=== PATIENT | male | born 1950 | race American Indian/Alaskan Native ===

== ENCOUNTER 2017-11-12 11:28 | Inpatient (IN) | payer MEDICAID, MEDICARE ==
[2017-11-12 12:23] LABS: Basophils # (Auto) 0.1 K/mm3 (0.0-0.1); Basophils % (Auto) 1.1 % (0.0-1.8); Eosinophils # (Auto) 0.1 K/mm3 (0.0-0.4); Eosinophils % (Auto) 2.3 % (0.0-4.3); Hematocrit 34.7 % (35.5-45.6); Hemoglobin 11.3 gm/dl (11.8-15.2); Lymphocytes # (Auto) 1.9 K/mm3 (1.2-5.4); Lymphocytes % (Auto) 31.4 % (13.4-35.0); Mean Corpuscular HGB Conc 33 % (32-34); Mean Corpuscular Hemoglobin 30 pg (28-32); Mean Corpuscular Volume 91 fl (84-94); Monocytes # (Auto) 0.5 K/mm3 (0.0-0.8); Monocytes % (Auto) 9.2 % (0.0-7.3); Platelet Count 210 K/mm3 (140-440); Red Blood Count 3.82 M/mm3 (3.65-5.03)
[2017-11-12 12:30] LABS: Calcium 8.9 mg/dL (8.4-10.2)
[2017-11-12] MEDS ORDERED: NACL 0.9% 1000 ML 1,000 ML ONE (13:02)
[2017-11-12] MEDS ORDERED: NACL 0.9% 1000 ML 1,000 ML IV ONE ×2 (13:04→13:09)
--- NOTE | 2017-11-12 13:08 | Emergency Department Report ---
ED General Adult HPI - General Chief complaint: Hyperglycemia Stated complaint: HBP Time Seen by Provider: 11/12/17 13:05 Source: patient Mode of arrival: Ambulatory Limitations: No Limitations - History of Present Illness Initial comments: This is a 67-year-old type II diabetic on Humulin, Lantus and metformin. He ran out of his diabetes medicine. He went to the [facility]. His sugar read high and he was sent to the emergency department for evaluation. He has a history of chronic renal failure. He has a history of hypertension. He denies a history of congestive heart failure. Patient denies any pain, shortness of breath, nausea or vomiting. He's had no recent fever or chills. -: Gradual, days(s), week(s) Severity scale (0 -10): 0 Associated Symptoms: denies other symptoms, other (polyuria) - Related Data Home Medications Medication Instructions Recorded Confirmed Last Taken Metoprolol [Lopressor TAB] 50 mg PO BID 02/21/16 04/15/17 04/14/17 Previous Rx's Medication Instructions Recorded Last Taken Type Allopurinol [Zyloprim] 100 mg PO QDAY PRN #30 tablet 04/17/17 Unknown Rx AtorvaSTATin [Lipitor] 80 mg PO HS #30 tablet 04/17/17 Unknown Rx Benzonatate [Tessalon Perles] 100 mg PO Q8HR #10 capsule 04/17/17 Unknown Rx Insulin Regular, Human [HumuLIN R] 10 unit SQ TID #30 units 04/17/17 Unknown Rx Ticagrelor [Brilinta] 90 mg PO BID #60 tablet 04/17/17 Unknown Rx Valsartan [Diovan] 160 mg PO QDAY #30 tablet 04/17/17 Unknown Rx glipiZIDE [Glipizide] 5 mg PO DAILY #30 tablet 04/17/17 Unknown Rx Detemir (Nf) [Levemir (Nf)] 25 units SUB-Q BIDDIAB #120 units 04/19/17 Unknown Rx Allergies Allergy/AdvReac Type Severity Reaction Status Date / Time No Known Allergies Allergy Unverified 04/21/13 10:16 ED Review of Systems ROS: Stated complaint: HBP Other details as noted in HPI Constitutional: denies: chills, fever Eyes: denies: eye pain, eye discharge, vision change ENT: denies: ear pain, throat pain Respiratory: denies: cough, shortness of breath, wheezing Cardiovascular: denies: chest pain, palpitations Endocrine: no symptoms reported Gastrointestinal: denies: abdominal pain, nausea, diarrhea Genitourinary: denies: urgency, dysuria Musculoskeletal: denies: back pain, joint swelling, arthralgia Skin: denies: rash, lesions Neurological: denies: headache, weakness, paresthesias Psychiatric: denies: anxiety, depression Hematological/Lymphatic: denies: easy bleeding, easy bruising ED Past Medical Hx - Past Medical History Hx Hypertension: Yes Hx Heart Attack/AMI: Yes (cardiac stent placed 2014) Hx Diabetes: Yes Hx Renal Disease: Yes (Renal insufficiency. No hemodialysis) Hx Seizures: No Hx Kidney Stones: No Hx Asthma: No Hx COPD: No Hx Tuberculosis: No Hx Dementia: No Hx HIV: No Additional medical history: Pancreatitis - Surgical History Hx Coronary Stent: No Hx Open Heart Surgery: No Hx Pacemaker: No Hx Internal Defibrillator: No Hx Cholecystectomy: No Hx Appendectomy: No Hx Breast Surgery: No Additional Surgical History: right arm surgery. hernia repair. brain aneurysm with repair - Social History Smoking Status: Former Smoker Substance Use Type: None - Medications Home Medications: Home Medications Medication Instructions Recorded Confirmed Last Taken Type Metoprolol [Lopressor TAB] 50 mg PO BID 02/21/16 04/15/17 04/14/17 History Allopurinol [Zyloprim] 100 mg PO QDAY PRN #30 tablet 04/17/17 Unknown Rx AtorvaSTATin [Lipitor] 80 mg PO HS #30 tablet 04/17/17 Unknown Rx Benzonatate [Tessalon Perles] 100 mg PO Q8HR #10 capsule 04/17/17 Unknown Rx Insulin Regular, Human [HumuLIN R] 10 unit SQ TID #30 units 04/17/17 Unknown Rx Ticagrelor [Brilinta] 90 mg PO BID #60 tablet 04/17/17 Unknown Rx Valsartan [Diovan] 160 mg PO QDAY #30 tablet 04/17/17 Unknown Rx glipiZIDE [Glipizide] 5 mg PO DAILY #30 tablet 04/17/17 Unknown Rx Detemir (Nf) [Levemir (Nf)] 25 units SUB-Q BIDDIAB #120 units 04/19/17 Unknown Rx ED Physical Exam - General Limitations: Physical Limitation General appearance: alert, in no apparent distress, obese - Head Head exam: Present: atraumatic, normocephalic - Eye Eye exam: Present: normal appearance. Absent: scleral icterus - ENT ENT exam: Present: mucous membranes moist - Neck Neck exam: Present: normal inspection. Absent: tenderness, meningismus - Respiratory Respiratory exam: Present: normal lung sounds bilaterally. Absent: respiratory distress - Cardiovascular Cardiovascular Exam: Present: regular rate, normal rhythm. Absent: systolic murmur, diastolic murmur, rubs, gallop - GI/Abdominal GI/Abdominal exam: Present: soft, distended (morbidly obese), normal bowel sounds. Absent: tenderness, guarding, rebound, rigid - Rectal Rectal exam: Present: deferred - Extremities Exam Extremities exam: Present: normal inspection - Back Exam Back exam: Present: normal inspection - Neurological Exam Neurological exam: Present: alert, oriented X3 - Psychiatric Psychiatric exam: Present: normal affect, normal mood - Skin Skin exam: Present: warm, dry, intact, normal color. Absent: rash ED Course Vital Signs 11/12/17 11/12/17 11/12/17 11:48 12:21 12:24 Temperature 97.6 F 97.7 F Pulse Rate 117 H 96 H Respiratory 18 16 Rate Blood Pressure 115/91 Blood Pressure 147/95 [Right] O2 Sat by Pulse 96 99 99 Oximetry 11/12/17 11/12/17 11/12/17 12:30 12:46 13:00 Temperature Pulse Rate 96 H 96 H 95 H Respiratory 9 L 17 17 Rate Blood Pressure 147/95 147/95 146/104 Blood Pressure [Right] O2 Sat by Pulse 100 99 98 Oximetry - Reevaluation(s) Reevaluation #1: Patient was given IV fluids. He was given IV insulin. He did not have ketones in his urine. He has a mildly increased anion gallop. I think this is more likely related to his prerenal azotemia and chronic renal insufficiency. I do not think he meets criteria for an insulin drip. He is admitted to the hospitalist service for further care and evaluation. 11/12/17 14:25 ED Medical Decision Making - Lab Data Result diagrams: 11/12/17 11:58 11/12/17 11:58 Laboratory Results - last 24 hr 11/12/17 11/12/17 11/12/17 11:46 11:58 11:58 WBC 6.0 RBC 3.82 Hgb 11.3 L Hct 34.7 L MCV 91 MCH 30 MCHC 33 RDW 15.0 Plt Count 210 Lymph % (Auto) 31.4 Starr % (Auto) 9.2 H Eos % (Auto) 2.3 Baso % (Auto) 1.1 Lymph # 1.9 Starr # 0.5 Eos # 0.1 Baso # 0.1 Seg Neutrophils % 56.0 Seg Neutrophils # 3.4 VBG pH Sodium 134 L Potassium 5.0 Chloride 98.0 Carbon Dioxide 21 L Anion Gap 20 BUN 54 H Creatinine 3.0 H Estimated GFR 25 BUN/Creatinine Ratio 18 Glucose 604 H* POC Glucose 469 H Calcium 8.9 11/12/17 11:58 WBC RBC Hgb Hct MCV MCH MCHC RDW Plt Count Lymph % (Auto) Starr % (Auto) Eos % (Auto) Baso % (Auto) Lymph # Starr # Eos # Baso # Seg Neutrophils % Seg Neutrophils # VBG pH 7.266 L Sodium Potassium Chloride Carbon Dioxide Anion Gap BUN Creatinine Estimated GFR BUN/Creatinine Ratio Glucose POC Glucose Calcium Critical care attestation.: If time is entered above; I have spent that time in minutes in the direct care of this critically ill patient, excluding procedure time. ED Disposition Clinical Impression: Prerenal azotemia, Uncontrolled hypertension Hyperglycemia due to type 2 diabetes mellitus Qualifiers: Diabetes mellitus [employer] insulin use: with mcfp use Qualified Code(s): E11.65 - Type 2 diabetes mellitus with hyperglycemia; Z79.4 - half-way (current ) use of insulin Acute on chronic renal failure Qualifiers: Acute renal failure type: unspecified Chronic kidney disease stage: stage 3 ( moderate) Qualified Code(s): N17.9 - Acute kidney failure, unspecified; N18.3 - Chronic kidney disease, stage 3 (moderate) Disposition: -09 OP ADMIT IP TO THIS HOSP Is pt being admited?: Yes Does the pt Need Aspirin: Yes Condition: Stable Instructions: Diabetes Mellitus Type 2 in Adults (ED), Hypertension (ED) Referrals: PRIMARY CARE, [Primary Care Provider] - 3-5 Days Time of Disposition: 14:28
[2017-11-12] MEDS ORDERED: HumuLIN R IV ONE ×2 (13:10→16:02)
--- NOTE | 2017-11-12 14:22 | XRay Report ---
FINAL REPORT EXAM: XR CHEST 1V AP HISTORY: hypertension TECHNIQUE: Frontal chest x-ray. PRIORS: None currently available. FINDINGS: [id number] cardiomegaly. Aortic calcifications. There is no effusion. There is no pneumothorax. There is no consolidation. Punctate densities in the left mid lower lung suggests calcified granulomas. There are no suspicious osseous lesions. IMPRESSION: Suspect calcified granulomas in the left lung. Interval six-month follow-up x-ray to document stability is recommended. Cardiomegaly. Otherwise, no acute pulmonary findings.
[2017-11-12] MEDS ORDERED: BABY ASPIRIN PO ONE (14:28)
[2017-11-12] MEDS ORDERED: DIOVAN PO ONE (14:37)
[2017-11-12] MEDS ORDERED: LOPRESSOR PO ONE (14:37)
[2017-11-12 14:44] LABS: Bilirubin,Urine NEG (Negative); Blood,Urine SM (Negative); Color,Urine Straw (Yellow); Urobilinogen,Urine < 2.0 mg/dL (<2.0)
[2017-11-12] MEDS ORDERED: HumuLIN R ONE (16:10)
--- NOTE | 2017-11-12 18:08 | History and Physical Report ---
History of Present Illness Date of examination: 11/12/17 Date of admission: 11/12/17 14:29 Chief complaint: CC: Comes in for High Blood sugars---sent from [facility] History of present illness: History of Present Illness: 67 y/o Black male came in for high blood sugars.Pateint went to [facility] and was told that his BG was higher than 500.patient also feels weak and easily fatigued.Some SOB.No chest pain.No fever or chills.Patient is on lantus and did not take it for last 2 days.Polyuria is present.Patient also has ckd for last 5 to 6 years.Also has CHF. Past Medical History Hx Hypertension: Yes Hx Heart Attack/AMI: Yes (cardiac stent placed 2014) Hx Diabetes: Yes Hx Renal Disease: Yes (Renal insufficiency. No hemodialysis) Additional medical history: Pancreatitis Surgical History Additional Surgical History: right arm surgery. hernia repair. brain aneurysm with repair Social History Smoking Status: Former Smoker Substance Use Type: None Family History Htn Medications Home Medications: Home Medications Medication Instructions Recorded Confirmed Last Taken Type Metoprolol [Lopressor TAB] 50 mg PO BID 02/21/16 04/15/17 04/14/17 History Allopurinol [Zyloprim] 100 mg PO QDAY PRN #30 tablet 04/17/17 Unknown Rx AtorvaSTATin [Lipitor] 80 mg PO HS #30 tablet 04/17/17 Unknown Rx Benzonatate [Tessalon Perles] 100 mg PO Q8HR #10 capsule 04/17/17 Unknown Rx Insulin Regular, Human [HumuLIN R] 10 unit SQ TID #30 units 04/17/17 Unknown Rx Ticagrelor [Brilinta] 90 mg PO BID #60 tablet 04/17/17 Unknown Rx Valsartan [Diovan] 160 mg PO QDAY #30 tablet 04/17/17 Unknown Rx glipiZIDE [Glipizide] 5 mg PO DAILY #30 tablet 04/17/17 Unknown Rx Detemir (Nf) [Levemir (Nf)] 25 units SUB-Q BIDDIAB #120 units 04/19/17 Unknown Rx Review of Systems ROS: Stated complaint: HBP Other details as noted in HPI Constitutional: denies: chills, fever Eyes: denies: eye pain, eye discharge, vision change ENT: denies: ear pain, throat pain Respiratory: denies: cough, shortness of breath, wheezing Cardiovascular: denies: chest pain, palpitations Endocrine: no symptoms reported Gastrointestinal: denies: abdominal pain, nausea, diarrhea Genitourinary: denies: urgency, dysuria Musculoskeletal: denies: back pain, joint swelling, arthralgia Skin: denies: rash, lesions Neurological: denies: headache, weakness, paresthesias Psychiatric: denies: anxiety, depression Hematological/Lymphatic: denies: easy bleeding, easy bruising Medications and Allergies Allergies Allergy/AdvReac Type Severity Reaction Status Date / Time No Known Allergies Allergy Unverified 04/21/13 10:16 Home Medications Medication Instructions Recorded Confirmed Last Taken Type Metoprolol [Lopressor TAB] 50 mg PO BID 02/21/16 04/15/17 04/14/17 History Allopurinol [Zyloprim] 100 mg PO QDAY PRN #30 tablet 04/17/17 Unknown Rx AtorvaSTATin [Lipitor] 80 mg PO HS #30 tablet 04/17/17 Unknown Rx Benzonatate [Tessalon Perles] 100 mg PO Q8HR #10 capsule 04/17/17 Unknown Rx Insulin Regular, Human [HumuLIN R] 10 unit SQ TID #30 units 04/17/17 Unknown Rx Ticagrelor [Brilinta] 90 mg PO BID #60 tablet 04/17/17 Unknown Rx Valsartan [Diovan] 160 mg PO QDAY #30 tablet 04/17/17 Unknown Rx glipiZIDE [Glipizide] 5 mg PO DAILY #30 tablet 04/17/17 Unknown Rx Detemir (Nf) [Levemir (Nf)] 25 units SUB-Q BIDDIAB #120 units 04/19/17 Unknown Rx Exam - Constitutional Vitals: Temp Pulse Resp BP Pulse Ox 98.0 F 91 H 20 169/103 96 11/12/17 16:38 11/12/17 16:38 11/12/17 16:38 11/12/17 16:38 11/12/17 16:38 General appearance: Present: no acute distress, well-nourished - EENT Eyes: Present: PERRL ENT: hearing intact, clear oral mucosa - Neck Neck: Present: supple, normal ROM - Respiratory Respiratory effort: normal Respiratory: bilateral: CTA - Cardiovascular Heart rate: 78 Rhythm: regular Heart Sounds: Present: S1 & S2. Absent: rub, click - Extremities Extremities: no ischemia, pulses intact, pulses symmetrical, No edema Peripheral Pulses: within normal limits - Abdominal General gastrointestinal: Present: soft, non-tender, non-distended, normal bowel sounds Male genitourinary: Present: normal - Rectal Rectal Exam: deferred - Integumentary Integumentary: Present: clear, warm, dry - Musculoskeletal Musculoskeletal: gait normal, strength equal bilaterally - Psychiatric Psychiatric: appropriate mood/affect, intact judgment & insight - Neurologic Neurologic: CNII-XII intact, moves all extremities - Allied Health Allied health notes reviewed: nursing, case management Results - Labs CBC & Chem 7: 11/12/17 11:58 11/12/17 11:58 Labs: Laboratory Last Values WBC 6.0 K/mm3 (4.5-11.0) 11/12/17 11:58 RBC 3.82 M/mm3 (3.65-5.03) 11/12/17 11:58 Hgb 11.3 gm/dl (11.8-15.2) L 11/12/17 11:58 Hct 34.7 % (35.5-45.6) L 11/12/17 11:58 MCV 91 fl (84-94) 11/12/17 11:58 MCH 30 pg (28-32) 11/12/17 11:58 MCHC 33 % (32-34) 11/12/17 11:58 RDW 15.0 % (13.2-15.2) 11/12/17 11:58 Plt Count 210 K/mm3 (140-440) 11/12/17 11:58 Lymph % (Auto) 31.4 % (13.4-35.0) 11/12/17 11:58 [place] % (Auto) 9.2 % (0.0-7.3) H 11/12/17 11:58 Eos % (Auto) 2.3 % (0.0-4.3) 11/12/17 11:58 Baso % (Auto) 1.1 % (0.0-1.8) 11/12/17 11:58 Lymph # 1.9 K/mm3 (1.2-5.4) 11/12/17 11:58 [place] # 0.5 K/mm3 (0.0-0.8) 11/12/17 11:58 Eos # 0.1 K/mm3 (0.0-0.4) 11/12/17 11:58 Baso # 0.1 K/mm3 (0.0-0.1) 11/12/17 11:58 Seg Neutrophils % 56.0 % (40.0-70.0) 11/12/17 11:58 Seg Neutrophils # 3.4 K/mm3 (1.8-7.7) 11/12/17 11:58 VBG pH 7.266 (7.320-7.420) L 11/12/17 11:58 Sodium 134 mmol/L (137-145) L 11/12/17 11:58 Potassium 5.0 mmol/L (3.6-5.0) 11/12/17 11:58 Chloride 98.0 mmol/L (98-107) 11/12/17 11:58 Carbon Dioxide 21 mmol/L (22-30) L 11/12/17 11:58 Anion Gap 20 mmol/L 11/12/17 11:58 BUN 54 mg/dL (9-20) H 11/12/17 11:58 Creatinine 3.0 mg/dL (0.8-1.5) H 11/12/17 11:58 Estimated GFR 25 ml/min 11/12/17 11:58 BUN/Creatinine Ratio 18 % 11/12/17 11:58 Glucose 604 mg/dL (75-100) H* 11/12/17 11:58 POC Glucose 423 (70-105) H 11/12/17 16:50 Calcium 8.9 mg/dL (8.4-10.2) 11/12/17 11:58 Urine Color Straw (Yellow) 11/12/17 14:33 Urine Turbidity Clear (Clear) 11/12/17 14:33 Urine pH 5.0 (5.0-7.0) 11/12/17 14:33 Ur Specific [place] 1.015 (1.003-1.030) 11/12/17 14:33 Urine Protein 100 mg/dl mg/dL (Negative) 11/12/17 14:33 Urine Glucose (UA) >=500 mg/dL (Negative) 11/12/17 14:33 Urine Ketones Neg mg/dL (Negative) 11/12/17 14:33 Urine Blood Sm (Negative) 11/12/17 14:33 Urine Nitrite Neg (Negative) 11/12/17 14:33 Urine Bilirubin Neg (Negative) 11/12/17 14:33 Urine Urobilinogen < 2.0 mg/dL (<2.0) 11/12/17 14:33 Ur Leukocyte Esterase Neg (Negative) 11/12/17 14:33 Urine WBC (Auto) 1.0 /HPF (0.0-6.0) 11/12/17 14:33 Urine RBC (Auto) 3.0 /HPF (0.0-6.0) 11/12/17 14:33 Short CBC 11/12/17 Range/Units 11:58 WBC 6.0 (4.5-11.0) K/mm3 Hgb 11.3 L (11.8-15.2) gm/dl Hct 34.7 L (35.5-45.6) % Plt Count 210 (140-440) K/mm3 BMP 11/12/17 11:58 Sodium 134 L Potassium 5.0 Chloride 98.0 Carbon Dioxide 21 L BUN 54 H Creatinine 3.0 H Glucose 604 H* Calcium 8.9 Urine 11/12/17 Range/Units 14:33 Urine Color Straw (Yellow) Urine pH 5.0 (5.0-7.0) Ur Specific [place] 1.015 (1.003-1.030) Urine Protein 100 mg/dl (Negative) mg/dL Urine Glucose (UA) >=500 (Negative) mg/dL - Imaging and Cardiology EKG: report reviewed (Left anterior fascicular block 87/minute NSR LAFB ST depression) Imaging and Cardiology: CXR IMPRESSION: Suspect calcified granulomas in the left lung. Interval six-month follow-up x-ray to document stability is recommended. Cardiomegaly. Otherwise, no acute pulmonary findings. Assessment and Plan Advance Directives: Yes (full code) VTE prophylaxis?: Chemical Plan of care discussed with patient/family: Yes - Patient Problems (1) Hyperosmolar non-ketotic state in patient with type 2 diabetes mellitus Current Visit: Yes Status: Acute Plan to address problem: Insulin adjusted and was put on high-dose sliding scale coverage. Lantus increased to 35 units. Glipizide stopped because there is no need for oral hypoglycemics in the presence of long-acting insulin. Check hemoglobin A1c IV fluids at a very low volume of 42 mL per hour because of the chronic kidney disease and heart failure. Patient to be counseled about his dosage at the time of discharge (2) Acute kidney injury Current Visit: No Status: Acute Plan to address problem: IV fluids at low-dose for now (3) Chronic kidney disease Current Visit: Yes Status: Chronic Qualifiers: Chronic kidney disease stage: stage 4 (severe) Qualified Code(s): N18.4 - Chronic kidney disease, stage 4 (severe) Plan to address problem: nephrology consulted Baseline Bun/cr 30/1.8 in 2013 (4) Gout Current Visit: Yes Status: Chronic Qualifiers: Gout site: unspecified site Plan to address problem: Continue allopurinol (5) Hyperlipidemia Current Visit: Yes Status: Chronic Qualifiers: Hyperlipidemia type: mixed hyperlipidemia Qualified Code(s): E78.2 - Mixed hyperlipidemia Plan to address problem: Continue statins (6) Hypertension Current Visit: Yes Status: Chronic Qualifiers: Hypertension type: essential hypertension Qualified Code(s): I10 - Essential (primary) hypertension Plan to address problem: Continue valsartan (7) Coronary artery disease Current Visit: Yes Status: Chronic Qualifiers: Coronary Disease-Associated Artery/Lesion type: [place] artery [place] vs. transplanted heart: [place] heart Plan to address problem: Continue BRILINTA (8) DVT prophylaxis Current Visit: Yes Status: Acute Plan to address problem: heparin 5000 every 12 subcutaneously Famotidine initiated for GI prophylaxis
[2017-11-12] MEDS ORDERED: ZYLOPRIM PO PRN (18:57)
[2017-11-12] MEDS ORDERED: SODIUM CHLORIDE FLUSH SYRINGE 10 ML IV PRN (18:59)
[2017-11-12] MEDS ORDERED: MORPHINE IV PRN (18:59)
[2017-11-12] MEDS ORDERED: ZOFRAN IV PRN (18:59)
[2017-11-12] MEDS ORDERED: TYLENOL PO PRN (18:59)
[2017-11-12] MEDS: PEPCID PO SCH (21:11)
[2017-11-12] MEDS: DIOVAN PO SCH (21:11)
[2017-11-12] MEDS: TESSALON PERLES PO SCH (21:11)
[2017-11-12] MEDS: BRILINTA PO SCH (21:12)
[2017-11-12] MEDS: LOPRESSOR PO SCH (21:12)
[2017-11-12] MEDS: SODIUM CHLORIDE FLUSH SYRINGE 10 ML IV SCH (21:12)
[2017-11-12] MEDS: NACL 0.9% 1000 ML 1,000 ML IV SCH (21:12)
[2017-11-12] MEDS: PERCOCET 5/325 PO PRN (21:14)
[2017-11-12] MEDS: HumaLOG SUB-Q SCH (22:19)
[2017-11-13] MEDS: TESSALON PERLES PO SCH ×3 (05:10→21:49)
[2017-11-13 05:51] LABS: Basophils % (Auto) 0.7 % (0.0-1.8); Eosinophils # (Auto) 0.2 K/mm3 (0.0-0.4); Eosinophils % (Auto) 3.3 % (0.0-4.3); Hematocrit 33.2 % (35.5-45.6); Hemoglobin 10.9 gm/dl (11.8-15.2); Lymphocytes # (Auto) 1.8 K/mm3 (1.2-5.4); Lymphocytes % (Auto) 33.9 % (13.4-35.0); Mean Corpuscular HGB Conc 33 % (32-34); Mean Corpuscular Hemoglobin 30 pg (28-32); Mean Corpuscular Volume 90 fl (84-94); Monocytes # (Auto) 0.5 K/mm3 (0.0-0.8); Monocytes % (Auto) 9.4 % (0.0-7.3); Platelet Count 195 K/mm3 (140-440); Red Blood Count 3.69 M/mm3 (3.65-5.03); Red Cell Distribution Width 14.7 % (13.2-15.2)
[2017-11-13 06:17] LABS: Calcium 8.6 mg/dL (8.4-10.2)
[2017-11-13] MEDS: HumuLIN R SUB-Q SCH ×3 (08:00→16:42)
[2017-11-13] MEDS ORDERED: INSULIN DETEMIR 35 UNIT SUB-Q SCH (08:00)
--- NOTE | 2017-11-13 08:04 | Progress Note ---
Assessment and Plan - Hyperosmolar non-ketotic state in patient with type 2 diabetes mellitus hemoglobin A1c 17.0% Bld sugar inproving Continue IV fluids at a very low volume of 42 mL per hour because of the chronic kidney disease and heart failure. counseled about his dosage at the time of discharge - Acute kidney injury Current Visit: No Status: Acute Plan to address problem: IV fluids at low-dose for now - Chronic kidney disease nephrology consulted Baseline Bun/cr 30/1.8 in 2013 - Gout Continue allopurinol Hold NSIAD of colchicine b/c CKD - Hyperlipidemia Continue statins - Hypertension D/c valsartan - recalled meds Commence Losartan - Coronary artery disease Continue BRILINTA - DVT prophylaxis with Heparin and GI with Pepcid Subjective Date of service: 11/13/17 Principal diagnosis: HHNK state, CKD 3b, Interval history: Patient seen and examined. [facility] for polyuria polydipsia polyphagia that is getting better. Objective - Exam Narrative Exam: Constitutional: Well-nourished well-developed. In no distress Head: Normocephalic atraumatic Eyes: Pupils are equal round and reactive to light Nose: No enlarged turbinates, no septal deviation. Mouth: Moist mucous membranes. Neck: Supple no thyromegaly. No bruit. No JVD Heart: Regular rate and rhythm, S1-S2 abnormal. No rubs murmurs or gallop Lungs: Clear to auscultation bilaterally no rales or rhonchi Abdomen: Soft, nontender. Bowel sound are present. Extremities: No edema no cyanosis and no clubbing. Neuro: Alert oriented Oriented x3. No focal sensory or motor deficit. Skin: No rashes no hyperemic spots Psychiatry: Euthymic. Calm. - Constitutional Vitals: Vital Signs - 12hr 11/12/17 11/12/17 11/12/17 21:11 21:12 22:00 Temperature Pulse Rate 74 74 74 Respiratory Rate Blood Pressure 183/106 183/106 Blood Pressure [Right] O2 Sat by Pulse Oximetry 11/13/17 02:00 Temperature 97.1 F L Pulse Rate 74 Respiratory 20 Rate Blood Pressure Blood Pressure 168/94 [Right] O2 Sat by Pulse 95 Oximetry - Labs CBC & Chem 7: 11/13/17 05:21 11/13/17 05:21 Labs: Abnormal lab results 08/11/12/17 11/12/17 Range/Units 11:46 11:58 11:58 Hgb 11.3 L (11.8-15.2) gm/dl Hct 34.7 L (35.5-45.6) % [place] % (Auto) 9.2 H (0.0-7.3) % VBG pH (7.320-7.420) Sodium 134 L (137-145) mmol/L Carbon Dioxide 21 L (22-30) mmol/L BUN 54 H (9-20) mg/dL Creatinine 3.0 H (0.8-1.5) mg/dL Glucose 604 H* (75-100) mg/dL POC Glucose 469 H (70-105) Hemoglobin A1c (4-6) % Albumin (3.9-5) g/dL 11/12/17 11/12/17 11/12/17 Range/Units 11:58 15:59 16:50 Hgb (11.8-15.2) gm/dl Hct (35.5-45.6) % [place]ila % (Auto) (0.0-7.3) % VBG pH 7.266 L (7.320-7.420) Sodium (137-145) mmol/L Carbon Dioxide (22-30) mmol/L BUN (9-20) mg/dL Creatinine (0.8-1.5) mg/dL Glucose (75-100) mg/dL POC Glucose 492 H 423 H (70-105) Hemoglobin A1c (4-6) % Albumin (3.9-5) g/dL 11/12/17 11/12/17 11/13/17 Range/Units 20:36 22:07 05:21 Hgb 10.9 L (11.8-15.2) gm/dl Hct 33.2 L (35.5-45.6) % [place]ila % (Auto) 9.4 H (0.0-7.3) % VBG pH (7.320-7.420) Sodium (137-145) mmol/L Carbon Dioxide (22-30) mmol/L BUN (9-20) mg/dL Creatinine (0.8-1.5) mg/dL Glucose (75-100) mg/dL POC Glucose 418 H (70-105) Hemoglobin A1c 17.0 H (4-6) % Albumin (3.9-5) g/dL 11/13/17 Range/Units 05:21 Hgb (11.8-15.2) gm/dl Hct (35.5-45.6) % [place] % (Auto) (0.0-7.3) % VBG pH (7.320-7.420) Sodium (137-145) mmol/L Carbon Dioxide 21 L (22-30) mmol/L BUN 45 H (9-20) mg/dL Creatinine 2.6 H (0.8-1.5) mg/dL Glucose 256 H (75-100) mg/dL POC Glucose (70-105) Hemoglobin A1c (4-6) % Albumin 3.0 L (3.9-5) g/dL
[2017-11-13] MEDS: HumaLOG SUB-Q SCH ×4 (08:19→22:55)
[2017-11-13] MEDS: LANTUS SUB-Q SCH ×2 (08:19→16:41)
[2017-11-13] MEDS: PEPCID PO SCH ×2 (09:38→21:49)
[2017-11-13] MEDS: LOPRESSOR PO SCH ×2 (09:39→21:49)
[2017-11-13] MEDS: DIOVAN PO SCH (09:39)
[2017-11-13] MEDS: BRILINTA PO SCH ×2 (09:39→21:49)
--- NOTE | 2017-11-13 10:53 | Consultation ---
History of Present Illness - Reason for Consult Consult date: 11/13/17 acute renal failure, chronic renal failure - History of Present Illness The patient is a 66-year-old male with history significant for long standing DM- 2, Obesity, HTN, Ex-smoker quit 2013, CKD stage 3 approaching stage 4, CAD s/p drug eluding stent 04/23/2013 on Bilanta, Gout, Dyslipidemia andmedical non- compliance who presented to emergency department with uncontrolled blood sugar. His blood sugar was 604 and creatinine 3. He ran out of his Insulin few days ago. Patient had similar presentation in the past. HbA1C 17. Past History Past Medical History: diabetes, heart failure (?), hypertension, hyperlipidemia , renal failure Medications and Allergies Allergies Allergy/AdvReac Type Severity Reaction Status Date / Time No Known Allergies Allergy Unverified 04/21/13 10:16 Home Medications Medication Instructions Recorded Confirmed Last Taken Type Metoprolol [Lopressor TAB] 50 mg PO BID 02/21/16 04/15/17 04/14/17 History Allopurinol [Zyloprim] 100 mg PO QDAY PRN #30 tablet 04/17/17 Unknown Rx AtorvaSTATin [Lipitor] 80 mg PO HS #30 tablet 04/17/17 Unknown Rx Benzonatate [Tessalon Perles] 100 mg PO Q8HR #10 capsule 04/17/17 Unknown Rx Insulin Regular, Human [HumuLIN R] 10 unit SQ TID #30 units 04/17/17 Unknown Rx Ticagrelor [Brilinta] 90 mg PO BID #60 tablet 04/17/17 Unknown Rx Valsartan [Diovan] 160 mg PO QDAY #30 tablet 04/17/17 Unknown Rx glipiZIDE [Glipizide] 5 mg PO DAILY #30 tablet 04/17/17 Unknown Rx Detemir (Nf) [Levemir (Nf)] 25 units SUB-Q BIDDIAB #120 units 04/19/17 Unknown Rx Active Meds: Active Medications Acetaminophen (Tylenol) 650 mg PO Q4H PRN PRN Reason: Pain MILD(1-3)/Fever >100.5/ALCARAZ Allopurinol (Zyloprim) 100 mg PO QDAY PRN PRN Reason: Inflammation Atorvastatin Calcium (Lipitor) 80 mg PO HS ISAC Last Admin: 11/12/17 21:11 Dose: 80 mg Benzonatate (Tessalon Perles) 100 mg PO Q8HR [facility] Last Admin: 11/13/17 05:10 Dose: 100 mg Famotidine (Pepcid) 20 mg PO BID [facility] Last Admin: 11/13/17 09:38 Dose: 20 mg Sodium Chloride (Nacl 0.9% 1000 Ml) 1,000 mls @ 42 mls/hr IV DIRECT [facility] Last Admin: 11/12/17 21:12 Dose: 42 mls/hr Insulin Glargine (Lantus) 35 units SUB-Q BIDDIAB [facility] Last Admin: 11/13/17 08:19 Dose: 35 units Insulin Human Lispro (Humalog) 0 unit SUB-Q ACHS [facility]; Protocol Last Admin: 11/13/17 08:19 Dose: 6 unit Insulin Human Regular (Humulin R) 10 units SUB-Q AC [facility] Metoprolol Tartrate (Lopressor) 50 mg PO BID [facility] Last Admin: 11/13/17 09:39 Dose: 50 mg Morphine Sulfate (Morphine) 2 mg IV Q4H PRN PRN Reason: Pain, Moderate (4-6) Ondansetron HCl (Zofran) 4 mg IV Q8H PRN PRN Reason: Nausea And Vomiting Oxycodone/Acetaminophen (Percocet 5/325) 1 tab PO Q6H PRN PRN Reason: Pain, Moderate (4-6) Last Admin: 11/12/17 21:14 Dose: 1 tab Sodium Chloride (Sodium Chloride Flush Syringe 10 Ml) 10 ml IV BID [facility] Last Admin: 11/12/17 21:12 Dose: 10 ml Sodium Chloride (Sodium Chloride Flush Syringe 10 Ml) 10 ml IV PRN PRN PRN Reason: LINE FLUSH Ticagrelor (Brilinta) 90 mg PO BID [facility] Last Admin: 11/13/17 09:39 Dose: 90 mg Valsartan (Diovan) 160 mg PO QDAY [facility] Last Admin: 11/13/17 09:39 Dose: 160 mg Review of Systems Constitutional: no weight loss, no weight gain, no fever, no chills, no anorexia Cardiovascular: high blood pressure, no chest pain, no orthopnea, no palpitations, no edema, no syncope, no lightheadedness, no shortness of breath, no leg edema Respiratory: no cough, no hemoptysis, no shortness of breath Gastrointestinal: no abdominal pain, no nausea, no vomiting, no diarrhea, no melena Genitourinary Male: no dysuria, no hematuria, no kidney stones Rectal: no bleeding Musculoskeletal: no muscle weakness Integumentary: no rash, no sores, no wounds, no jaundice Neurological: no paralysis, no weakness, no seizures, no syncope, no headaches, no aphasia, no change in speech, no change in mentation, no confusion, no memory loss, no double vision, no loss of vision Psychiatric: no confusion Endocrine: polyuria Exam - Vital Signs Vital signs: Vital Signs Temp Pulse Resp BP Pulse Ox 97.6 F 117 H 18 115/91 96 11/12/17 11:48 11/12/17 11:48 11/12/17 11:48 11/12/17 11:48 11/12/17 11:48 - General Appearance General appearance: well-developed, well-nourished, appears stated age, obese, other (not in distress) EENT: ATNC, PERRL, hearing intact, vision intact Neck: Present: neck supple, trachea midline Respiratory: Clear to Ascultation Heart: regular, S1S2, no murmurs Gastrointestinal: Present: normoactive bowel sounds. Absent: tenderness Integumentary: no rash, warm and dry Neurologic: no focal deficit, no asterixis, alert and oriented x3 Musculoskeletal: Present: other (no edema) Results - Lab Results 11/13/17 05:21 11/13/17 05:21 Most recent lab results Calcium 8.6 mg/dL (8.4-10.2) 11/13/17 05:21 Assessment and Plan 1. Acute kidney injury: MADIHA superimposed on CKD stage 3 in the setting of uncontrolled DM. Creatinine level is better today. Monitor. 2. Electrolytes: Metabolic acidosis. 3. Uncontrolled DM: Blood sugar is better now. 4. CAD. 5. Medical non-compliance: Compliance encouraged.
[2017-11-13] MEDS: SODIUM CHLORIDE FLUSH SYRINGE 10 ML IV SCH ×2 (12:11→21:50)
--- NOTE | 2017-11-13 12:59 | Progress Note ---
Subjective Date of service: 11/13/17 Principal diagnosis: HHNK state, CKD 3b, Interval history: CONSULT DICTATED Objective Vital Signs Temp Pulse Resp BP BP Pulse Ox 11/13/17 10:00 18 11/13/17 09:39 77 129/80 11/13/17 07:32 97.5 F L 77 18 129/80 96 11/13/17 02:31 97.7 F 74 20 95 11/13/17 02:00 97.1 F L 74 20 168/94 95 11/12/17 22:00 74 11/12/17 21:12 74 183/106 11/12/17 21:11 74 183/106 11/12/17 19:41 98.1 F 74 20 183/106 99 11/12/17 18:00 118 H 29 H 203/98 11/12/17 16:38 98.0 F 91 H 20 169/103 96 11/12/17 16:10 203/98 99 11/12/17 16:00 146/99 99 11/12/17 15:50 146/99 98 11/12/17 15:40 88 11 L 146/99 98 11/12/17 15:37 92 H 146/99 11/12/17 15:35 97.5 F L 92 H 16 146/99 98 11/12/17 15:30 90 11 L 180/109 100 11/12/17 15:20 89 15 180/109 99 11/12/17 15:10 88 9 L 94 11/12/17 15:00 96 H 16 171/105 100 11/12/17 14:50 88 15 171/105 98 11/12/17 14:40 92 H 15 171/105 96 11/12/17 14:30 90 14 171/105 100 11/12/17 14:16 90 16 171/105 100 11/12/17 14:00 88 15 173/101 96 11/12/17 13:46 88 14 173/105 97 11/12/17 13:30 87 14 173/105 98 11/12/17 13:16 91 H 17 146/104 97 11/12/17 13:00 95 H 17 146/104 98 - Labs and Meds Cardiac Enzymes 11/13/17 Range/Units 05:21 AST 12 (5-40) units/L CBC 11/13/17 Range/Units 05:21 WBC 5.4 (4.5-11.0) K/mm3 RBC 3.69 (3.65-5.03) M/mm3 Hgb 10.9 L (11.8-15.2) gm/dl Hct 33.2 L (35.5-45.6) % Plt Count 195 (140-440) K/mm3 Lymph # 1.8 (1.2-5.4) K/mm3 [place] # 0.5 (0.0-0.8) K/mm3 Eos # 0.2 (0.0-0.4) K/mm3 Baso # 0.0 (0.0-0.1) K/mm3 Comprehensive Metabolic Panel 11/13/17 Range/Units 05:21 Sodium 138 (137-145) mmol/L Potassium 4.0 (3.6-5.0) mmol/L Chloride 101.8 (98-107) mmol/L Carbon Dioxide 21 L (22-30) mmol/L BUN 45 H (9-20) mg/dL Creatinine 2.6 H (0.8-1.5) mg/dL Glucose 256 H (75-100) mg/dL Calcium 8.6 (8.4-10.2) mg/dL AST 12 (5-40) units/L ALT 8 (7-56) units/L Alkaline Phosphatase 115 (35-129) units/L Total Protein 6.7 (6.3-8.2) g/dL Albumin 3.0 L (3.9-5) g/dL - Imaging and Cardiology EKG: report reviewed (Left anterior fascicular block 87/minute NSR [facility]AFB ST depression)
[2017-11-13] MEDS: PERCOCET 5/325 PO PRN (21:50)
--- NOTE | 2017-11-14 04:02 | Consultation ---
HISTORY OF PRESENT ILLNESS: The patient is a 67-year-old male with multiple medical problems including a history of coronary artery disease. He is unable to give much detail about his past medical history, he apparently cannot recall the details. He ran out of his diabetes medicine and was sent here with markedly elevated blood sugar. He had a coronary stent placed about 3 years ago, but does not remember which hospital. He does not describe MA prior to the stent placement. The chart describes congestive heart failure but he does not, he does not describe any episodes of shortness of breath with ankle swelling. His has him on a strict diet. He is moderately active by walking his dog. He describes dyspnea on exertion and easy fatigability, but no chest pain. He did not describe any claudication, ankle edema, palpitations, or dizziness. The chart describes a history of chronic kidney disease, hypertension, gout and hyperlipidemia. He states he had head injury as a child and has a plate in his head. When I asked about aneurysms, he does not describe any brain aneurysm. He is a prior smoker, but gives no history of COPD. PAST MEDICAL HISTORY AND MEDICATIONS: See the nurse's list. ALLERGIES: None. SOCIAL HISTORY: Smoking, prior smoker. Alcohol, no heavy use described. PAST SURGICAL HISTORY: Right arm surgery, herniorrhaphy, brain aneurysm repair listed, but as described above, the patient describes a head injury followed by surgery. REVIEW OF SYSTEMS: There is a history of pancreatitis. He otherwise did not describe any medical problems or complaints. He does not know the name of his regular doctor. He does not see a alligator hunter regularly. FAMILY HISTORY: No family history is listed. PHYSICAL EXAMINATION: GENERAL: Well-developed, moderately obese, no acute distress. HEENT: Alert, oriented and cooperative. Mental status is normal. Eyes, nose and throat are unremarkable. NECK: Reveals no JVD or bruits. Neck is supple, no masses. LUNGS: Clear. No labored respirations. CARDIOVASCULAR: Regular rhythm, S4 gallop. Grade 2 systolic murmur at the left sternal border. ABDOMEN: Soft, nontender, no masses. EXTREMITIES: No cyanosis or clubbing. Trace pedal edema. Peripheral pulses are intact. NEUROLOGIC: Grossly symmetrical. SKIN: Clear. IMPRESSION: 1. Type 1 diabetes: Uncontrolled. 2. History of coronary artery disease: Asymptomatic, EKG is not available at this time. 3. Chart describes a history of congestive heart failure: He denies any knowledge of this. We will get an echocardiogram to reevaluate his cardiac status. 4. Chronic kidney disease stage 3. 5. Hypertension. 6. Probable hyperlipidemia. 7. Obesity. 8. History of head trauma years ago. 9. Prior smoker, but no history of chronic obstructive pulmonary disease. 10. History of gout. PLAN: Echocardiogram. Discussed CAD risk factor modification. Encouraged strict diet and aerobic exercise. Consider repeat stress test on an outpatient basis. Thank you for this consultation. JOB# [id number] ANEL/DEBORAH
[2017-11-14] MEDS: TESSALON PERLES PO SCH ×3 (05:20→22:04)
[2017-11-14 06:50] LABS: Calcium 8.7 mg/dL (8.4-10.2)
--- NOTE | 2017-11-14 07:20 | Progress Note ---
Assessment and Plan 1. Acute kidney injury: MADIHA superimposed on CKD stage 3 in the setting of uncontrolled DM. Renal function continue to improve. Monitor. 2. Electrolytes: Metabolic acidosis. 3. Uncontrolled DM: Blood sugar is better. 4. CAD. 5. Medical non-compliance: Compliance encouraged. Subjective Date of service: 11/14/17 Principal diagnosis: HHNK state, CKD 3b, Interval history: Patient is feeling better. Objective - Vital Signs Vital signs: Vital Signs - 12hr 11/13/17 11/13/17 11/13/17 20:28 21:49 22:00 Temperature Pulse Rate 79 79 Respiratory 18 Rate Blood Pressure 136/96 136/96 O2 Sat by Pulse 99 Oximetry 11/14/17 11/14/17 03:23 03:28 Temperature 98.1 F Pulse Rate 71 Respiratory 20 Rate Blood Pressure 149/86 O2 Sat by Pulse 97 Oximetry - General Appearance General appearance: well-developed, well-nourished, appears stated age, obese, other (not in distress) EENT: ATNC, PERRL, mucous membranes moist, hearing intact, vision intact Neck: supple Respiratory: Present: Clear to Ascultation Cardiology: regular, S1S2, no murmurs Gastrointestinal: normoactive bowel sounds, no tenderness, no distended Integumentary: no rash, warm and dry Neurologic: no focal deficit, no asterixis, alert and oriented x3 Musculoskeletal: other (no edema) Psychiatric: cooperative - Lab 11/13/17 05:21 11/14/17 05:46 Most recent lab results Calcium 8.7 mg/dL (8.4-10.2) 11/14/17 05:46 Phosphorus 3.30 mg/dL (2.5-4.5) 11/14/17 05:46
[2017-11-14 08:07] LABS: Creatinine,Urine 53.7 mg/dL (0.1-20.0); Protein/Creatinine Ratio,Urine 3.31
--- NOTE | 2017-11-14 08:42 | Progress Note ---
Assessment and Plan - Hyperosmolar non-ketotic state in patient with type 2 diabetes mellitus hemoglobin A1c 17.0% SSI Blood sugar improving Continue IV fluids at a very low volume of 42 mL per hour because of the chronic kidney disease and heart failure. - Acute kidney injury IV fluids at low-dose for now - Chronic kidney disease Nephrology consulted Baseline Bun/cr 30/1.8 in 2013 - Gout Continue allopurinol Hold NSIAD of colchicine b/c CKD - Hyperlipidemia Continue statins - Hypertension D/c valsartan - recalled meds D/c Losartan d/c acute on CKD. Commence Labetalol - Coronary artery disease Continue BRILINTA - DVT prophylaxis with Heparin and GI with Pepcid Subjective Date of service: 11/14/17 Principal diagnosis: HHNK state, CKD 3b, Interval history: Patient seen and examined. Denies polyuria polydipsia polyphagia that is getting better. Objective - Exam Narrative Exam: Constitutional: Well-nourished well-developed. In no distress Head: Normocephalic atraumatic Eyes: Pupils are equal round and reactive to light Nose: No enlarged turbinates, no septal deviation. Mouth: Moist mucous membranes. Neck: Supple no thyromegaly. No bruit. No JVD Heart: Regular rate and rhythm, S1-S2 abnormal. No rubs murmurs or gallop Lungs: Clear to auscultation bilaterally no rales or rhonchi Abdomen: Soft, nontender. Bowel sound are present. Extremities: No edema no cyanosis and no clubbing. Neuro: Alert oriented Oriented x3. No focal sensory or motor deficit. Skin: No rashes no hyperemic spots Psychiatry: Euthymic. Calm. - Constitutional Vitals: Vital Signs - 12hr 11/13/17 11/13/17 11/14/17 21:49 22:00 03:23 Temperature Pulse Rate 79 71 Respiratory 18 Rate Blood Pressure 136/96 149/86 O2 Sat by Pulse 97 Oximetry 11/14/17 03:28 Temperature 98.1 F Pulse Rate Respiratory 20 Rate Blood Pressure O2 Sat by Pulse Oximetry - Labs CBC & Chem 7: 11/13/17 05:21 11/14/17 05:46 Labs: Abnormal lab results 11/13/17 11/13/17 11/13/17 Range/Units 11:42 16:15 22:08 Carbon Dioxide (22-30) mmol/L BUN (9-20) mg/dL Creatinine (0.8-1.5) mg/dL Glucose (75-100) mg/dL POC Glucose 362 H 371 H 359 H (70-105) Urine Creatinine (0.1-20.0) mg/dL Urine Total Protein (5-11.8) mg/dL 11/14/17 11/14/17 11/14/17 Range/Units 05:46 06:25 07:58 Carbon Dioxide 21 L (22-30) mmol/L BUN 40 H (9-20) mg/dL Creatinine 2.5 H (0.8-1.5) mg/dL Glucose 177 H (75-100) mg/dL POC Glucose 182 H (70-105) Urine Creatinine 53.7 H (0.1-20.0) mg/dL Urine Total Protein 178 H (5-11.8) mg/dL
--- NOTE | 2017-11-14 09:30 | Progress Note ---
Assessment and Plan Diabetes mellitus -uncontrolled Hx of coronary artery disease no ischemia MPI 03/2017 left ventricular ejection fraction 45-50% by echo this admission Chronic kidney disease Hypertension Subjective Date of service: 11/14/17 Principal diagnosis: HHNK state, CKD 3b, Interval history: Patient denies chest pain and shortness of breath. Objective Vital Signs Temp Pulse Resp BP Pulse Ox 11/14/17 07:59 98.2 F 74 18 157/102 99 11/14/17 03:28 98.1 F 20 11/14/17 03:23 71 149/86 97 11/13/17 22:00 18 11/13/17 21:49 79 136/96 11/13/17 20:28 79 136/96 99 11/13/17 13:12 97.9 F 81 18 161/87 97 11/13/17 10:00 18 11/13/17 09:39 77 129/80 - Physical Examination General: No Apparent Distress HEENT: Positive: PERRL Neck: Positive: trachea midline Cardiac: Positive: Reg Rate and Rhythm Lungs: Positive: Decreased Breath Sounds - Labs and Meds Comprehensive Metabolic Panel 11/14/17 Range/Units 05:46 Sodium 140 (137-145) mmol/L Potassium 4.0 (3.6-5.0) mmol/L Chloride 105.6 (98-107) mmol/L Carbon Dioxide 21 L (22-30) mmol/L BUN 40 H (9-20) mg/dL Creatinine 2.5 H (0.8-1.5) mg/dL Glucose 177 H (75-100) mg/dL Calcium 8.7 (8.4-10.2) mg/dL
[2017-11-14] MEDS: HumaLOG SUB-Q SCH ×4 (09:39→22:52)
[2017-11-14] MEDS: HumuLIN R SUB-Q SCH ×3 (09:40→17:35)
[2017-11-14] MEDS: LANTUS SUB-Q SCH ×2 (09:50→17:37)
[2017-11-14] MEDS: DIOVAN PO SCH (09:51)
[2017-11-14] MEDS: LOPRESSOR PO SCH ×2 (09:51→22:05)
[2017-11-14] MEDS: PEPCID PO SCH ×2 (09:51→22:04)
[2017-11-14] MEDS: BRILINTA PO SCH (09:51)
[2017-11-14] MEDS: SODIUM CHLORIDE FLUSH SYRINGE 10 ML IV SCH ×2 (09:53→22:06)
[2017-11-14] MEDS: NACL 0.9% 1000 ML 1,000 ML IV SCH (17:29)
[2017-11-14] MEDS: PERCOCET 5/325 PO PRN (22:05)
[2017-11-15] MEDS: TESSALON PERLES PO SCH ×2 (07:45→13:27)
--- NOTE | 2017-11-15 08:04 | Progress Note ---
Assessment and Plan 1. Acute kidney injury: MADIHA superimposed on CKD stage 3 in the setting of uncontrolled DM. Renal function is better, at his baseline. Monitor. 2. Electrolytes: Metabolic acidosis. 3. Uncontrolled DM: Blood sugar is better. 4. HTN: Stop IV fluids. Increase Valsartan. Low salt diet. 5. CAD. 6. Medical non-compliance. Subjective Date of service: 11/15/17 Principal diagnosis: HHNK state, CKD 3b, Interval history: Patient is feeling better. Objective - Vital Signs Vital signs: Vital Signs - 12hr 11/14/17 22:05 Pulse Rate 74 Blood Pressure 172/102 - General Appearance General appearance: well-developed, well-nourished, appears stated age, obese, other (not in distress) EENT: ATNC, PERRL, mucous membranes moist, hearing intact, vision intact Neck: supple Respiratory: Present: Clear to Ascultation Cardiology: regular, S1S2, no murmurs Gastrointestinal: normoactive bowel sounds, no tenderness Integumentary: no rash, warm and dry Neurologic: no focal deficit, no asterixis, alert and oriented x3 Musculoskeletal: other (no edema) Psychiatric: cooperative - Lab 11/13/17 05:21 11/15/17 08:09 Most recent lab results Calcium 8.7 mg/dL (8.4-10.2) 11/14/17 05:46 Phosphorus 3.30 mg/dL (2.5-4.5) 11/14/17 05:46 Urine Creatinine 53.7 mg/dL (0.1-20.0) H 11/14/17 06:25 Urine Total Protein 178 mg/dL (5-11.8) H 11/14/17 06:25
[2017-11-15 08:10] LABS: Calcium 8.7 mg/dL (8.4-10.2)
[2017-11-15] MEDS: HumaLOG SUB-Q SCH ×2 (08:36→11:50)
[2017-11-15] MEDS: HumuLIN R SUB-Q SCH ×2 (08:42→11:50)
[2017-11-15] MEDS: DIOVAN PO SCH (09:00)
[2017-11-15] MEDS: PEPCID PO SCH (09:01)
[2017-11-15] MEDS: LOPRESSOR PO SCH (09:01)
[2017-11-15] MEDS: SODIUM CHLORIDE FLUSH SYRINGE 10 ML IV SCH (09:02)
[2017-11-15] MEDS: LANTUS SUB-Q SCH (09:02)
[2017-11-15] MEDS ORDERED: HALFPRIN EC PO SCH (10:00)
[2017-11-15] MEDS ORDERED: PLAVIX PO SCH (10:00)
[2017-11-15] MEDS ORDERED: DIOVAN PO SCH (12:00)
--- NOTE | 2017-11-15 13:00 | Progress Note ---
Assessment and Plan - Patient Problems (1) Uncontrolled diabetes mellitus Current Visit: No Status: Acute Plan to address problem: Patient's presenting complaints was uncontrolled diabetes, being managed by the medical service. There are no cardiac symptoms, no active cardiac issues, will follow intermittently. Subjective Date of service: 11/15/17 Principal diagnosis: HHNK state, CKD 3b, Interval history: Patient is comfortable, in no cardiac complaints. His presenting complaint of uncontrolled diabetes is under management by internal medicine. Objective Vital Signs Temp Pulse Resp BP Pulse Ox 11/15/17 11:50 166/93 11/15/17 11:34 166/93 11/15/17 10:00 81 11/15/17 09:01 81 174/98 11/15/17 09:00 81 174/98 11/15/17 07:52 97.8 F 81 18 174/98 99 11/14/17 22:05 74 172/102 11/14/17 19:52 98.7 F 74 20 172/102 94 11/14/17 19:30 95 11/14/17 13:46 70 20 151/82 96 - Physical Examination General: No Apparent Distress HEENT: Positive: PERRL Neck: Positive: trachea midline Cardiac: Positive: Reg Rate and Rhythm Lungs: Positive: Decreased Breath Sounds Neuro: Positive: Grossly Intact Abdomen: Positive: Soft Skin: Positive: Clear Extremities: Absent: edema - Labs and Meds Comprehensive Metabolic Panel 11/15/17 Range/Units 08:09 Sodium 140 (137-145) mmol/L Potassium 4.1 (3.6-5.0) mmol/L Chloride 105.5 (98-107) mmol/L Carbon Dioxide 22 (22-30) mmol/L BUN 38 H (9-20) mg/dL Creatinine 2.6 H (0.8-1.5) mg/dL Glucose 106 H (75-100) mg/dL Calcium 8.7 (8.4-10.2) mg/dL - Imaging and Cardiology EKG: report reviewed (Left anterior fascicular block 87/minute NSR LAFB ST depression)
[2017-11-15 14:02] VITALS: BP 186/99
--- NOTE | 2017-11-15 14:04 | Discharge Summary ---
Providers - Providers Date of Admission: 11/12/17 14:29 Date of discharge: 11/15/17 Attending physician: LIZZETH MORRELL 11/12/17 Consult to Case Management [CONS] Routine Services Needed at Discharge: Home Health Services Notified:: yes If yes, spoke with:: jerrica Time called:: 11:19 Comment:: alethea 11/12/17 19:24 Consult to Physician [CONS] Routine Comment: Consulting Provider: HE LOPEZ Physician Instructions: Reason For Exam: CKD 11/12/17 19:25 Consult to Physician [CONS] Routine Comment: Consulting Provider: RUSS VILLATORO Physician Instructions: Reason For Exam: CHF Primary care physician: C[employer] MANAGEMENT SPECIALIST Hospitalization Condition: Stable Disposition: DC-01 TO HOME OR SELFCARE Time spent for discharge: 35 min Core Measure Documentation - Palliative Care Palliative Care/ Comfort Measures: Not Applicable - Core Measures Any of the following diagnoses?: none Exam - Constitutional Vitals: Temp Pulse Resp BP Pulse Ox 97.8 F 81 18 166/93 99 11/15/17 07:52 11/15/17 10:00 11/15/17 07:52 11/15/17 11:50 11/15/17 07:52 General appearance: Present: no acute distress, well-nourished - EENT Eyes: Present: PERRL, EOM intact - Neck Neck: Present: supple, normal ROM - Respiratory Respiratory effort: normal Respiratory: bilateral: diminished, negative: rales, rhonchi, wheezing - Cardiovascular Rhythm: regular Heart Sounds: Present: S1 & S2 - Extremities Extremities: no ischemia, No edema - Abdominal General gastrointestinal: Present: soft, non-tender, non-distended, normal bowel sounds - Integumentary Integumentary: Present: clear, warm - Musculoskeletal Musculoskeletal: strength equal bilaterally - Psychiatric Psychiatric: appropriate mood/affect, cooperative - Neurologic Neurologic: CNII-XII intact, moves all extremities Plan Activity: no restrictions Diet: low salt, diabetic Additional Instructions: Exercise as tolerated and weight reduction when medically stable Follow up with: RONAL DAILY MD [Primary Care Provider] - 3-5 Days HE LOPEZ MD [Staff Physician] - 7 Days RUSS VILLATORO MD [Staff Physician] - 7 Days Prescriptions: Clopidogrel [Plavix] 75 mg PO QDAY #30 tablet
--- NOTE | 2017-11-16 12:43 | Query- Renal Failure ---
Vickey Calhoun___Lou Date:___11/16/2017 [employer]atinum[employer]/CDS:__Jeanette/Nico Phone#:___[phone] Exercise your independent professional judgment when responding to query. Questions asked do not imply a particular answer is desired or expected. We greatly appreciate your clarification on this issue. Clinical Documentation States: 67 Year old male was admitted on 11/12/2017 for High Blood sugars. The H&P stated "Hx Renal Disease: Yes (Renal insufficiency. No hemodialysis)." The IM (Dr. Rich) progress note on 11/14/2017 stated "- Acute kidney injury IV fluids at low-dose for now." Clinical Findings Show: Creatinine 11/12 3.0 11/13 2.6 11/14 2.5 Please clarify if you mean: Acute Renal Failure with or due to: [ ] Tubular Necrosis [ ] Medullary Necrosis [ x] Vasomotor Nephropathy [ ] Shock Kidney [ ] Tubular Nephrosis [ ] Renal Tubular Stasis [ ] Cortical Necrosis [ ] Acute Renal Failure (unspecified) [ ] Lower Tubular Nephrosis [ ] Other: [ ] Not Applicable Present on Admission: [ x] Yes (Y) [ ] Clinically undeterminable (W) [ ] No (N) Please also document response in your Progress Notes and/or Discharge Summary and indicate if the condition was present on admission. HU
== END 2017-11-15 16:15 | disposition home or self-care (01) | DRG 682 ==
LOC: ED 11:28 → 2B-ACE 14:29
PROVIDERS: ADMIT Internal Medicine; ATTEND Internal Medicine
DX: N17.0 Acute kidney failure with tubular necrosis (principal); E11.00 Type 2 diabetes mellitus with hyperosmolarity without nonketotic hyperglycemic-hyperosmolar coma (NKHHC); E87.2 Acidosis; I13.0 Hypertensive heart and chronic kidney disease with heart failure and stage 1 through stage 4 chronic kidney disease, or unspecified chronic kidney disease; N18.4 Chronic kidney disease, stage 4 (severe); Z95.5 Presence of coronary angioplasty implant and graft; Z87.891 Personal history of nicotine dependence; Z82.49 Family history of ischemic heart disease and other diseases of the circulatory system; E11.22 Type 2 diabetes mellitus with diabetic chronic kidney disease; M10.9 Gout, unspecified; E78.2 Mixed hyperlipidemia; I25.10 Atherosclerotic heart disease of native coronary artery without angina pectoris; E66.9 Obesity, unspecified; Z91.14 Patient's other noncompliance with medication regimen; I50.9 Heart failure, unspecified; Z68.38 Body mass index [BMI] 38.0-38.9, adult
CPT/HCPCS: 36415; 71045; 80048; 80053; 81001; 82570; 82805; 82962; 83036; 84100; 84156; 85025; 87116; 93005; 93010; 93306; A9270-GY; J1815; J7030

== ENCOUNTER 2018-04-03 12:17 | Emergency (ER) | payer MEDICARE ==
[2018-04-03 12:55] VITALS: BP 113/59
[2018-04-03] MEDS ORDERED: GLUCAGEN IM ONE (12:59)
[2018-04-03] MEDS ORDERED: INSTA-GLUCOSE GEL PO ONE (13:00)
--- NOTE | 2018-04-03 13:43 | Emergency Department Report ---
ED General Adult HPI - General Chief complaint: Hypoglycemia Stated complaint: LOW BLOOD SUGAR Time Seen by Provider: 04/03/18 12:39 Source: EMS Mode of arrival: Stretcher Limitations: No Limitations - History of Present Illness Initial comments: Patient presents to the emergency department with a chief complaint of hypoglycemia. Per EMS upon arrival his glucose level was 32. Patient was given glucagon at scene. Patient states he took his insulin last night but did not eat this morning. Patient has a chest pain, sore throat, or headache. -: Sudden Severity scale (0 -10): 0 Consistency: constant Improves with: none Worsens with: none Associated Symptoms: denies other symptoms Treatments Prior to Arrival: none - Related Data Home Medications Medication Instructions Recorded Confirmed Last Taken Metoprolol [Lopressor TAB] 50 mg PO BID 02/21/16 11/14/17 04/14/17 Previous Rx's Medication Instructions Recorded Last Taken Type Allopurinol [Zyloprim] 100 mg PO QDAY PRN #30 tablet 04/17/17 Unknown Rx AtorvaSTATin [Lipitor] 80 mg PO HS #30 tablet 04/17/17 Unknown Rx Benzonatate [Tessalon Perles] 100 mg PO Q8HR #10 capsule 04/17/17 Unknown Rx Insulin Regular, Human [HumuLIN R] 10 unit SQ TID #30 units 04/17/17 Unknown Rx Valsartan [Diovan] 160 mg PO QDAY #30 tablet 04/17/17 Unknown Rx glipiZIDE [Glipizide] 5 mg PO DAILY #30 tablet 04/17/17 Unknown Rx Clopidogrel [Plavix] 75 mg PO QDAY #30 tablet 11/15/17 Unknown Rx Detemir (Nf) [Levemir (Nf)] 35 units SUB-Q BIDDIAB #120 units 11/15/17 Unknown Rx Lispro Insulin [Humalog] 0 unit SUB-Q ACHS units 11/15/17 Unknown Rx Allergies Allergy/AdvReac Type Severity Reaction Status Date / Time No Known Allergies Allergy Verified 04/03/18 12:21 ED Review of Systems ROS: Stated complaint: LOW BLOOD SUGAR Other details as noted in HPI Comment: All other systems reviewed and negative Constitutional: denies: chills, fever Eyes: denies: eye pain, eye discharge, vision change ENT: denies: ear pain, throat pain Respiratory: denies: cough, shortness of breath, wheezing Cardiovascular: denies: chest pain, palpitations Endocrine: no symptoms reported Gastrointestinal: denies: abdominal pain, nausea, diarrhea Genitourinary: denies: urgency, dysuria Musculoskeletal: denies: back pain, joint swelling, arthralgia Skin: denies: rash, lesions Neurological: denies: headache, weakness, paresthesias Psychiatric: denies: anxiety, depression Hematological/Lymphatic: denies: easy bleeding, easy bruising ED Past Medical Hx - Past Medical History Hx Hypertension: Yes Hx Heart Attack/AMI: Yes (cardiac stent placed 2014) Hx Diabetes: Yes Hx Renal Disease: Yes (Renal insufficiency. No hemodialysis) Hx Seizures: No Hx Kidney Stones: No Hx Asthma: No Hx COPD: No Hx Tuberculosis: No Hx Dementia: No Hx HIV: No Additional medical history: Pancreatitis - Surgical History Hx Coronary Stent: No Hx Open Heart Surgery: No Hx Pacemaker: No Hx Internal Defibrillator: No Hx Cholecystectomy: No Hx Appendectomy: No Hx Breast Surgery: No Additional Surgical History: right arm surgery. hernia repair. brain aneurysm with repair - Social History Smoking Status: Never Smoker Substance Use Type: None - Medications Home Medications: Home Medications Medication Instructions Recorded Confirmed Last Taken Type Metoprolol [Lopressor TAB] 50 mg PO BID 02/21/16 11/14/17 04/14/17 History Allopurinol [Zyloprim] 100 mg PO QDAY PRN #30 tablet 04/17/17 11/14/17 Unknown Rx AtorvaSTATin [Lipitor] 80 mg PO HS #30 tablet 04/17/17 11/14/17 Unknown Rx Benzonatate [Tessalon Perles] 100 mg PO Q8HR #10 capsule 04/17/17 11/14/17 Unknown Rx Insulin Regular, Human [HumuLIN R] 10 unit SQ TID #30 units 04/17/17 11/14/17 Unknown Rx Valsartan [Diovan] 160 mg PO QDAY #30 tablet 04/17/17 11/14/17 Unknown Rx glipiZIDE [Glipizide] 5 mg PO DAILY #30 tablet 04/17/17 11/14/17 Unknown Rx Clopidogrel [Plavix] 75 mg PO QDAY #30 tablet 11/15/17 Unknown Rx Detemir (Nf) [Levemir (Nf)] 35 units SUB-Q BIDDIAB #120 units 11/15/17 11/14/17 Unknown Rx Lispro Insulin [Humalog] 0 unit SUB-Q ACHS units 11/15/17 Unknown Rx ED Physical Exam - General Limitations: No Limitations General appearance: alert, in no apparent distress - Head Head exam: Present: atraumatic, normocephalic - Eye Eye exam: Present: normal appearance, PERRL, EOMI - ENT ENT exam: Present: mucous membranes moist - Neck Neck exam: Present: normal inspection - Respiratory Respiratory exam: Present: normal lung sounds bilaterally. Absent: respiratory distress, wheezes, rales - Cardiovascular Cardiovascular Exam: Present: regular rate, normal rhythm. Absent: systolic murmur, diastolic murmur, rubs, gallop - GI/Abdominal GI/Abdominal exam: Present: soft, normal bowel sounds. Absent: distended, tenderness - Rectal Rectal exam: Present: deferred - Extremities Exam Extremities exam: Present: normal inspection - Back Exam Back exam: Present: normal inspection - Neurological Exam Neurological exam: Present: alert, oriented X3, CN II-XII intact. Absent: motor sensory deficit - Psychiatric Psychiatric exam: Present: normal affect, normal mood - Skin Skin exam: Present: warm, dry, intact, normal color. Absent: rash ED Course Vital Signs 04/03/18 12:54 Pulse Rate 63 Respiratory 18 Rate Blood Pressure 113/59 [Left] O2 Sat by Pulse 96 Oximetry ED Medical Decision Making - Medical Decision Making Patient given a dose of glucagon in the ED along with oral glucose patient also received juice, a meal tray, and a peanut butter and jelly sandwich Critical care attestation.: If time is entered above; I have spent that time in minutes in the direct care of this critically ill patient, excluding procedure time. ED Disposition Clinical Impression: Hypoglycemia Disposition: DC-01 TO HOME OR SELFCARE Is pt being admited?: No Does the pt Need Aspirin: No Condition: Stable Instructions: Diabetic Hypoglycemia (ED) Additional Instructions: return if worse Referrals: [facility] [Provider Group] - 3-5 Days [facility] [Provider Group] - 3-5 Days Time of Disposition: 13:44
== END 2018-04-03 13:56 | disposition home or self-care (01) ==
LOC: ED 12:17
DX: E11.649 Type 2 diabetes mellitus with hypoglycemia without coma (principal); I10 Essential (primary) hypertension; I25.2 Old myocardial infarction; Z79.4 Long term (current) use of insulin; Z95.1 Presence of aortocoronary bypass graft
CPT/HCPCS: 82962; 96372; 99283; J1610

== ENCOUNTER 2018-08-09 14:11 | Inpatient (IN) | payer MEDICARE, MEDICAID ==
[2018-08-09] MEDS ORDERED: SODIUM CHLORIDE FLUSH SYRINGE 10 ML IV PRN ×2 (14:15→19:58)
[2018-08-09 16:54] LABS: Basophils # (Auto) 0.1 K/mm3 (0.0-0.1); Basophils % (Auto) 0.9 % (0.0-1.8); Eosinophils # (Auto) 0.2 K/mm3 (0.0-0.4); Eosinophils % (Auto) 3.6 % (0.0-4.3); Hematocrit 30.2 % (35.5-45.6); Hemoglobin 9.5 gm/dl (11.8-15.2); Lymphocytes # (Auto) 1.3 K/mm3 (1.2-5.4); Lymphocytes % (Auto) 21.4 % (13.4-35.0); Mean Corpuscular HGB Conc 32 % (32-34); Mean Corpuscular Volume 95 fl (84-94); Monocytes # (Auto) 0.6 K/mm3 (0.0-0.8); Monocytes % (Auto) 9.3 % (0.0-7.3); Platelet Count 218 K/mm3 (140-440); Red Blood Count 3.19 M/mm3 (3.65-5.03)
[2018-08-09 17:12] LABS: Albumin 2.7 g/dL (3.9-5); Calcium 7.7 mg/dL (8.4-10.2)
[2018-08-09 17:21] LABS: Hepatitis B Surface Antigen Non-Reactive (Negative); Hepatitis C Virus Antibody Non-Reactive (NonReactive)
--- NOTE | 2018-08-09 17:25 | Consultation ---
History of Present Illness - Reason for Consult Consult date: 08/09/18 chronic renal failure, end stage renal disease, metabolic acidosis - History of Present Illness The patient is a 68 YO male who is well known to our service with history significant for Morbid obesity, poorly controlled DM-2, HTN, Ex-smoker quit 2013, CKD stage 4, Diabetic Nephropathy, CAD s/p drug eluding stent 04/23/2013, Gout, Dyslipidemia and Anemia who was admitted directly to the floor from my office to initiate hemodialysis. Patient c/o fatigue, decreased appetite, generalized weakness, tiredness and excessive sleeping for the past 2 weeks. He also reports having bilateral LE edema. He was recently admitted at [facility] with volume overload. He denies any N, V, D, fever, chills, dizziness, cp, sob or syncope. Patient's symptoms are very suggestive of uremia. He agreed to start on hemodialysis. Past History Past Medical History: acute SD, anemia, CAD, diabetes, hypertension, hyperlipidemia, renal failure Medications and Allergies Allergies Allergy/AdvReac Type Severity Reaction Status Date / Time No Known Allergies Allergy Verified 04/03/18 12:21 Home Medications Medication Instructions Recorded Confirmed Last Taken Type Metoprolol [Lopressor TAB] 50 mg PO BID 02/21/16 11/14/17 04/14/17 History Allopurinol [Zyloprim] 100 mg PO QDAY PRN #30 tablet 04/17/17 11/14/17 Unknown Rx AtorvaSTATin [Lipitor] 80 mg PO HS #30 tablet 04/17/17 11/14/17 Unknown Rx Benzonatate [Tessalon Perles] 100 mg PO Q8HR #10 capsule 04/17/17 11/14/17 Unknown Rx Insulin Regular, Human [HumuLIN R] 10 unit SQ TID #30 units 04/17/17 11/14/17 Unknown Rx Valsartan [Diovan] 160 mg PO QDAY #30 tablet 04/17/17 11/14/17 Unknown Rx glipiZIDE [Glipizide] 5 mg PO DAILY #30 tablet 04/17/17 11/14/17 Unknown Rx Clopidogrel [Plavix] 75 mg PO QDAY #30 tablet 11/15/17 Unknown Rx Detemir (Nf) [Levemir (Nf)] 35 units SUB-Q BIDDIAB #120 units 11/15/17 11/14/17 Unknown Rx Lispro Insulin [HumaLOG] 0 unit SUB-Q ACHS units 11/15/17 Unknown Rx Active Meds: Active Medications Sodium Chloride (Sodium Chloride Flush Syringe 10 Ml) 10 ml IV BID ISAC Sodium Chloride (Sodium Chloride Flush Syringe 10 Ml) 10 ml IV PRN PRN PRN Reason: LINE FLUSH Review of Systems Constitutional: weight loss, fatigue, weakness, poor appetite, no weight gain, no fever, no chills, no anorexia Cardiovascular: edema, high blood pressure, leg edema, no chest pain, no orthopnea, no palpitations, no syncope, no lightheadedness, no shortness of breath Respiratory: no cough, no cough with sputum, no hemoptysis, no shortness of breath, no dyspnea on exertion, no home oxygen Gastrointestinal: loss of appetite, no abdominal pain, no nausea, no vomiting, no diarrhea, no jaundice Genitourinary Male: no dysuria, no hematuria Rectal: no bleeding Musculoskeletal: muscle weakness, no morning stiffness, no muscle cramps, no prior amputations Integumentary: no rash, no redness, no sores, no wounds, no jaundice Neurological: weakness, no paralysis, no convulsions, no aphasia, no change in speech, no change in mentation, no confusion, no memory loss Psychiatric: hypersomnia, no confusion Exam - General Appearance General appearance: well-developed, well-nourished, appears stated age, obese, other (not in distress) EENT: ATNC, PERRL, mucous membranes moist, hearing intact, vision intact Neck: Present: neck supple, trachea midline Respiratory: Clear to Ascultation Heart: regular, S1S2, no murmurs Gastrointestinal: Present: normoactive bowel sounds. Absent: tenderness, distended Integumentary: no rash, warm and dry Neurologic: no focal deficit, no asterixis, alert and oriented x3 Musculoskeletal: Present: other (1+ LE edema noted) Psychiatric: cooperative Results - Lab Results 08/09/18 16:19 08/09/18 16:19 Most recent lab results Calcium 7.7 mg/dL (8.4-10.2) L 08/09/18 16:19 Phosphorus 5.60 mg/dL (2.5-4.5) H 08/09/18 16:19 Assessment and Plan 1. ESRD: CKD has progressed to ESRD. Patient presented with symptoms very suggestive of uremia. Discussed with patient and his about indications, benefits and risks involved in hemodialysis. He agreed to proceed with hemodialysis. Vascular was consulted for placement of Tunnel dialysis catheter. First HD treatment tomorrow. 2. FEN: Metabolic acidosis, monitor. Volume overload, Lasix. Monitor. 3. Anemia: Epogen with HD. 4. DM type 2, uncontrolled. 5. Hypertension. 6. H/o CAD and stent.
[2018-08-09] MEDS ORDERED: ZYLOPRIM PO PRN (18:23)
[2018-08-09] MEDS ORDERED: ZOFRAN IV PRN (19:58)
[2018-08-09] MEDS ORDERED: SODIUM CHLORIDE FLUSH SYRINGE 10 ML IV SCH (22:00)
--- NOTE | 2018-08-09 23:32 | XRay Report ---
PROCEDURE: XR CHEST 1V AP TECHNIQUE: Chest radiograph single view. HISTORY: R/o TB, requirement for hemodialysis. COMPARISONS: None . FINDINGS: Heart: Normal. Mediastinum/Vessels: Normal. Lungs/Pleural space: Normal. Bony thorax: No acute osseous abnormality. Life support devices: None. IMPRESSION: No acute cardiopulmonary abnormality. This document is electronically signed by Ruma Hwang DO., Aug 09 2018 11:30:31 PM ET
[2018-08-10] MEDS: DIOVAN PO SCH ×2 (00:03→13:14)
[2018-08-10] MEDS: PEPCID PO SCH ×3 (00:03→22:08)
[2018-08-10] MEDS: PLAVIX PO SCH ×2 (00:03→10:21)
[2018-08-10] MEDS: HumaLOG SUB-Q SCH ×6 (00:04→22:22)
[2018-08-10] MEDS: LOPRESSOR PO SCH ×3 (00:04→22:08)
[2018-08-10] MEDS: SODIUM CHLORIDE FLUSH SYRINGE 10 ML IV SCH ×3 (00:05→22:10)
[2018-08-10 05:26] LABS: Basophils % (Auto) 0.7 % (0.0-1.8); Eosinophils # (Auto) 0.3 K/mm3 (0.0-0.4); Hematocrit 28.5 % (35.5-45.6); Hemoglobin 9.4 gm/dl (11.8-15.2); Lymphocytes # (Auto) 1.9 K/mm3 (1.2-5.4); Lymphocytes % (Auto) 29.5 % (13.4-35.0); Mean Corpuscular HGB Conc 33 % (32-34); Mean Corpuscular Volume 92 fl (84-94); Monocytes # (Auto) 0.6 K/mm3 (0.0-0.8); Monocytes % (Auto) 9.4 % (0.0-7.3); Platelet Count 222 K/mm3 (140-440); Red Cell Distribution Width 16.4 % (13.2-15.2)
[2018-08-10 05:57] LABS: Albumin 2.7 g/dL (3.9-5); Calcium 7.5 mg/dL (8.4-10.2)
--- NOTE | 2018-08-10 06:33 | Event Note ---
Date: 08/09/18 See H/p in reports ESRD needing HD HTN IDDM HLD Secondary hyperparathyroidism For vascath tomorrow
--- NOTE | 2018-08-10 07:10 | History and Physical Report ---
CHIEF COMPLAINT: 1. Needs hemodialysis. 2. Direct admit from Dr. Rodriges's office. HISTORY OF PRESENT ILLNESS: A 68-year-old male -[place] with obesity and poorly controlled diabetes and hypertension, sent by Dr. Rodriges for end-stage renal disease, needing hemodialysis. The patient is to get Vas-Cath and dialysis. The patient has been having generalized weakness, increasing shortness of breath and excessive tiredness, also shortness of breath on minimal exertion. No fever or chills. The patient was recently admitted at [facility] with volume overload. Denies nausea, vomiting, diarrhea. PAST MEDICAL HISTORY: Significant for hypertension, gout, hyperlipidemia, insulin-dependent diabetes, coronary artery disease. PAST SURGICAL HISTORY: Not available except for stent placement and right upper extremity I and D done 5 years ago. FAMILY HISTORY: Hypertension. SOCIAL HISTORY: Does not smoke. No recreational drugs. REVIEW OF SYSTEMS: Significant for generalized weakness, poor appetite, fatigue. No weight gain. High blood pressure. No orthopnea, no palpitations. Shortness of breath on exertion present. Generalized weakness and hypersomnia. Otherwise, 12-point review of systems was negative. PHYSICAL EXAMINATION: GENERAL: Elderly male, eating chips while in bed. VITAL SIGNS: Blood pressure 137/78, temperature 98, pulse is 90, respirations are 18, sats are 95%. HEENT: Unremarkable. Pupils equal and reactive. NECK: Supple, no lymphadenopathy, no thyromegaly. LUNGS: Clear to auscultation and percussion. Good air entry. CARDIOVASCULAR: S1, S2 heard. No gallop, no murmur, no rub. Apical impulse in left fifth intercostal space and midclavicular line. ABDOMEN: Soft and benign. No hepatosplenomegaly. No guarding, no rigidity. Hernial orifices are normal. EXTREMITIES: Good pedal pulses. No pedal edema. CENTRAL NERVOUS SYSTEM: Alert and oriented x 4, nonfocal exam. SKIN: Normal. LABORATORY DATA: Significant for white count of 6000, H and H of 9.5 and hematocrit of 30.2, platelet count of 218,000. BUN and creatinine of 69 and 4.1, bicarbonate is 18. Glucose is 147. A1c is 10.1, calcium is 7.7, albumin is 2.7. Hepatitis profile nonreactive for A, B and C. Chest x-ray shows no acute cardiopulmonary abnormality. ASSESSMENT AND PLAN: 1. End-stage renal disease, needing dialysis. The patient for Vas-Cath today or tomorrow morning. N.p.o. after midnight. The patient has volume overload. 2. Insulin-dependent diabetes. We will hold the oral hypoglycemics. The patient is on long-acting and short-acting insulin. We will do coverage for now till the patient starts eating, then we will resume his home Levemir and home insulin. 3. Gout. Continue allopurinol. 4. Hyperlipidemia. Continue atorvastatin. 5. History of deep venous thrombosis and pulmonary embolism. Continue Plavix. 6. Hypertension. Continue metoprolol and valsartan. 7. Deep venous thrombosis prophylaxis, heparin 5000 q. 12 and gastrointestinal prophylaxis. JOB# [id number] SHANI/DEBORAH LUI
[2018-08-10] MEDS ORDERED: NACL 0.9% 500 ML 500 ML IV SCH (08:00)
[2018-08-10] MEDS ORDERED: VERSED ONE (08:41)
[2018-08-10] MEDS ORDERED: SUBLIMAZE ONE (08:41)
[2018-08-10] MEDS ORDERED: XYLOCAINE 1%/ EPI 1:100,000 INFILTRATI ONE (08:42)
[2018-08-10] MEDS ORDERED: HEPARIN/NS 5000 UNIT/500ML(CATH LAB) 500 ML IR ONE (08:42)
[2018-08-10] MEDS ORDERED: NACL 0.9% 250ML 0 ML ONE (08:42)
[2018-08-10] MEDS: HumuLIN R SUB-Q SCH ×4 (08:44→17:33)
--- NOTE | 2018-08-10 09:06 | Consultation ---
History of Present Illness - Reason for Consult Consult date: 08/10/18 dialysis access Requesting physician: HE LOPEZ - History of Present Illness 68 year old male who has a past medical history significant for Morbid obesity, poorly controlled DM-2, HTN, Ex-smoker quit 2013, CKD stage 4, Diabetic Nephropathy, CAD s/p drug eluding stent 04/23/2013, Gout, Dyslipidemia and Anemia who was admitted directly to the floor from nephrology. Patient c/o fatigue, decreased appetite, generalized weakness, tiredness and excessive sleeping for the past 2 weeks. He also reports having bilateral LE edema. He was recently admitted at [facility] with volume overload. He denies any N, V, D, fever, chills, dizziness, cp, sob or syncope. Patient's symptoms are very suggestive of uremia. He agreed to start on hemodialysis. Vascular consulted for vascular access. Discussed situation with the patient and briefly discussed peritoneal dialysis and hemodialysis, then explained the difference between fistula and graft. Discussed avoiding using the left arm for IV access or blood draws or injections. Provided patient card. Set patient up for [facility]. Past History Past Medical History: acute MA, anemia, CAD, diabetes, hypertension, hyperlipidemia, renal failure Medications and Allergies Allergies Allergy/AdvReac Type Severity Reaction Status Date / Time No Known Allergies Allergy Verified 04/03/18 12:21 Home Medications Medication Instructions Recorded Confirmed Last Taken Type Metoprolol [Lopressor TAB] 50 mg PO BID 02/21/16 11/14/17 04/14/17 History Allopurinol [Zyloprim] 100 mg PO QDAY PRN #30 tablet 04/17/17 11/14/17 Unknown Rx AtorvaSTATin [Lipitor] 80 mg PO HS #30 tablet 04/17/17 11/14/17 Unknown Rx Benzonatate [Tessalon Perles] 100 mg PO Q8HR #10 capsule 04/17/17 11/14/17 Unknown Rx Insulin Regular, Human [HumuLIN R] 10 unit SQ TID #30 units 04/17/17 11/14/17 Unknown Rx Valsartan [Diovan] 160 mg PO QDAY #30 tablet 04/17/17 11/14/17 Unknown Rx glipiZIDE [Glipizide] 5 mg PO DAILY #30 tablet 01/28/18 08/27/18 Unknown Rx Clopidogrel [Plavix] 75 mg PO QDAY #30 tablet 11/15/17 Unknown Rx Detemir (Nf) [Levemir (Nf)] 35 units SUB-Q BIDDIAB #120 units 11/15/17 11/14/17 Unknown Rx Lispro Insulin [HumaLOG] 0 unit SUB-Q ACHS units 11/15/17 Unknown Rx Active Meds: Active Medications Acetaminophen (Tylenol) 650 mg PO Q4H PRN PRN Reason: Pain MILD(1-3)/Fever >100.5/ALCARAZ Allopurinol (Zyloprim) 100 mg PO QDAY PRN PRN Reason: Inflammation Atorvastatin Calcium (Lipitor) 80 mg PO [facility] Last Admin: 08/10/18 00:04 Dose: 80 mg Documented by: Clopidogrel Bisulfate (Plavix) 75 mg PO QDAY [facility] Last Admin: 08/10/18 00:03 Dose: 75 mg Documented by: Famotidine (Pepcid) 10 mg PO BID [facility] Last Admin: 08/10/18 00:03 Dose: 10 mg Documented by: Heparin Sodium (Porcine) (Heparin) 5,000 unit SUB-Q Q12HR [facility] Sodium Chloride (Nacl 0.9% 500 Ml) 500 mls @ 50 mls/hr IV DIRECT [facility] Insulin Human Lispro (Humalog) 0 unit SUB-Q [facility]; Protocol Last Admin: 08/10/18 08:43 Dose: Not Given Documented by: Insulin Human Regular (Humulin R) 10 units SUB-Q TIDWM [facility]; Protocol Last Admin: 08/10/18 08:44 Dose: Not Given Documented by: Metoprolol Tartrate (Lopressor) 50 mg PO BID [facility] Last Admin: 08/10/18 00:04 Dose: 50 mg Documented by: Morphine Sulfate (Morphine) 2 mg IV Q4H PRN PRN Reason: Pain, Moderate (4-6) Ondansetron HCl (Zofran) 4 mg IV Q8H PRN PRN Reason: Nausea And Vomiting Sodium Chloride (Sodium Chloride Flush Syringe 10 Ml) 10 ml IV BID [facility] Last Admin: 08/10/18 00:05 Dose: 10 ml Documented by: Sodium Chloride (Sodium Chloride Flush Syringe 10 Ml) 10 ml IV PRN PRN PRN Reason: LINE FLUSH Valsartan (Diovan) 160 mg PO QDAY [facility] Last Admin: 08/10/18 00:03 Dose: 160 mg Documented by: Review of Systems All systems: negative (see HPI) Exam - Constitutional Vitals: Temp Pulse Resp BP Pulse Ox 97.9 F 83 20 162/83 92 08/10/18 02:14 08/10/18 04:00 08/10/18 04:00 08/10/18 02:14 08/10/18 04:00 General appearance: Present: no acute distress, obese - EENT Eyes: Present: EOM intact ENT: hearing intact - Respiratory Respiratory effort: other (mild wheeze, audible) - Abdominal General gastrointestinal: Present: soft, other (obese) - Psychiatric Psychiatric: appropriate mood/affect, cooperative Results - Labs CBC & Chem 7: 08/10/18 05:00 08/10/18 05:00 Labs: Abnormal lab results 08/09/18 08/09/18 08/09/18 Range/Units 16:19 16:19 16:19 RBC 3.19 L (3.65-5.03) M/mm3 Hgb 9.5 L (11.8-15.2) gm/dl Hct 30.2 L (35.5-45.6) % MCV 95 H (84-94) fl RDW 17.0 H (13.2-15.2) % Stephens % (Auto) 9.3 H (0.0-7.3) % Carbon Dioxide 18 L (22-30) mmol/L BUN 69 H (9-20) mg/dL Creatinine 4.1 H (0.8-1.5) mg/dL Glucose 147 H (75-100) mg/dL POC Glucose (70-105) Hemoglobin A1c (4-6) % Calcium 7.7 L (8.4-10.2) mg/dL Phosphorus 5.60 H (2.5-4.5) mg/dL Albumin 2.7 L (3.9-5) g/dL 08/09/18 08/09/18 08/09/18 Range/Units 16:30 20:13 22:40 RBC (3.65-5.03) M/mm3 Hgb (11.8-15.2) gm/dl Hct (35.5-45.6) % MCV (84-94) fl RDW (13.2-15.2) % Stephens % (Auto) (0.0-7.3) % Carbon Dioxide (22-30) mmol/L BUN (9-20) mg/dL Creatinine (0.8-1.5) mg/dL Glucose (75-100) mg/dL POC Glucose 148 H 267 H (70-105) Hemoglobin A1c 10.1 H (4-6) % Calcium (8.4-10.2) mg/dL Phosphorus (2.5-4.5) mg/dL Albumin (3.9-5) g/dL 08/10/18 08/10/18 08/10/18 Range/Units 05:00 05:00 07:15 RBC 3.10 L (3.65-5.03) M/mm3 Hgb 9.4 L (11.8-15.2) gm/dl Hct 28.5 L (35.5-45.6) % MCV (84-94) fl RDW 16.4 H (13.2-15.2) % Stephens % (Auto) 9.4 H (0.0-7.3) % Carbon Dioxide 20 L (22-30) mmol/L BUN 71 H (9-20) mg/dL Creatinine 4.0 H (0.8-1.5) mg/dL Glucose 234 H (75-100) mg/dL POC Glucose 236 H (70-105) Hemoglobin A1c (4-6) % Calcium 7.5 L (8.4-10.2) mg/dL Phosphorus (2.5-4.5) mg/dL Albumin 2.7 L (3.9-5) g/dL Assessment and Plan 68-year-old male who has progressed to end-stage renal disease requiring vascular access for hemodialysis. Nothing by mouth except for meds with sips of water. Plan for PermCath. Ordered vein mapping of bilateral upper extremities. Avoid venipuncture, or IV placement and left upper extremity. The existing IV can be left alone, but no future IVs can be placed in the left upper extremity. Provided card. Discussed with patient to followup after discharge for permanent access creation.
[2018-08-10] MEDS: HEPARIN 10,000 UNITS/10 ML ONE ×4 (09:26→09:30)
--- NOTE | 2018-08-10 09:41 | Operative Report ---
Operative Report Operative Report: EXAM: 1. Ultrasound-guided puncture of the right internal jugular vein 2. Fluoroscopic-guided placement of a right internal jugular tunneled cuffed hemodialysis catheter. DATE: 08/10/18 INDICATION: End-stage renal disease requiring hemodialysis access. MEDICATIONS: Please see nursing report for full details. DEVICES: 23 cm tip to cuff 15 Fr dual lumen hemodialysis catheter HEAD OF PARTNER DEVELOPMENT: ANGELA ISAAC MD CONTRAST: None PROCEDURE: The risks, benefits, and alternatives were discussed and informed consent was obtained. The patient was transported to the angiography suite in satisfactory/stable condition and was transported onto the angiography table. The patient's right internal jugular vein was assessed with ultrasound and determined to be patent prior to procedure. The patient was prepped and draped in a sterile fashion. The puncture site was anesthetized. Under sonographic guidance, the right internal jugular vein was punctured with a 21-gauge micropuncture needle and a 0.018 inch wire was advanced into the inferior vena cava. The micropuncture needle was exchanged for a transitional dilator and the wire was retracted into the right atrium to roland intravascular distance. The wire and inner dilator were removed. 0.035 inch wire was advanced through the transitional dilator into the inferior vena cava. A suitable exit site was identified on the patient's chest inferior and lateral to the venotomy. The site was anesthetized with local anesthetic and the track was anesthetized. Dermatotomy was made. The PermCath was attached to the tunneling device and tunneled between the dermatotomy to the venotomy. Over the 0.035 inch wire, serial dilatation was performed with ultimate placement of a peel-away sheath. The catheter was advanced through the peel- away sheath after the wire was removed and positioned centrally under fluoroscopic guidance. The peel-away sheath was removed. 4-0 Vicryl suture was used to close the venotomy and Dermabond was then applied. 2-0 Ethilon suture was used to secure the catheter at the dermatotomy. The catheter was charged with heparin 1000 units/mL space. Sterile dressing and biopatch applied. The patient was transferred from the angiography suite back to the floor in stable condition. FINDINGS: 1. Excellent flow was obtained through the dialysis catheter with 20 mL syringes. 2. The catheter tip is in the right atrium. IMPRESSION: 1. Successful ultrasound and fluoroscopically guided placement of a right internal jugular tunneled cuffed hemodialysis catheter.
--- NOTE | 2018-08-10 09:53 | Progress Note ---
Assessment and Plan 1. ESRD: CKD has progressed to ESRD. Patient presented with symptoms very suggestive of uremia. S/p R IJ tunnel dialysis catheter. First HD treatment today. Need outpatient HD chair. 2. FEN: Metabolic acidosis, HD today. Volume overload, monitor. Monitor. 3. Anemia: Epogen with HD. 4. DM type 2, uncontrolled. 5. Hypertension. 6. H/o CAD and stent. Subjective Date of service: 08/10/18 Interval history: Patient was seen and examined at the bedside. Objective - Vital Signs Vital signs: Vital Signs - 12hr 08/10/18 08/10/18 08/10/18 00:03 02:14 04:00 Temperature 97.9 F Pulse Rate 90 83 Pulse Rate [ 83 Right Brachial] Respiratory 20 20 Rate Blood Pressure 137/78 162/83 O2 Sat by Pulse 92 92 Oximetry 08/10/18 07:10 Temperature 97.8 F Pulse Rate 79 Pulse Rate [ Right Brachial] Respiratory 18 Rate Blood Pressure 130/69 O2 Sat by Pulse 94 Oximetry - General Appearance General appearance: well-developed, well-nourished, appears stated age, obese, other (not in distress, R IJ tunnel catheter) EENT: ATNC, PERRL, hearing intact, vision intact Neck: supple Respiratory: Present: Clear to Ascultation Cardiology: regular, S1S2, no murmurs Gastrointestinal: normoactive bowel sounds, no tenderness, no distended Integumentary: no rash, warm and dry Neurologic: no focal deficit, no asterixis, alert and oriented x3 Musculoskeletal: other (trace LE edema noted) Psychiatric: cooperative - Lab 08/10/18 05:00 08/10/18 05:00 Most recent lab results Calcium 7.5 mg/dL (8.4-10.2) L 08/10/18 05:00 Phosphorus 5.60 mg/dL (2.5-4.5) H 08/09/18 16:19 Medications & Allergies - Medications Allergies/Adverse Reactions: Allergies No Known Allergies Allergy (Verified 04/03/18 12:21) Home Medications: Home Medications Medication Instructions Recorded Confirmed Last Taken Type Metoprolol [Lopressor TAB] 50 mg PO BID 02/21/16 11/14/17 04/14/17 History Allopurinol [Zyloprim] 100 mg PO QDAY PRN #30 tablet 04/17/17 11/14/17 Unknown Rx AtorvaSTATin [Lipitor] 80 mg PO HS #30 tablet 04/17/17 11/14/17 Unknown Rx Benzonatate [Tessalon Perles] 100 mg PO Q8HR #10 capsule 04/17/17 11/14/17 Unknown Rx Insulin Regular, Human [HumuLIN R] 10 unit SQ TID #30 units 04/17/17 11/14/17 Unknown Rx Valsartan [Diovan] 160 mg PO QDAY #30 tablet 04/17/17 11/14/17 Unknown Rx glipiZIDE [Glipizide] 5 mg PO DAILY #30 tablet 04/17/17 11/14/17 Unknown Rx Clopidogrel [Plavix] 75 mg PO QDAY #30 tablet 11/15/17 Unknown Rx Detemir (Nf) [Levemir (Nf)] 35 units SUB-Q BIDDIAB #120 units 11/15/17 11/14/17 Unknown Rx Lispro Insulin [HumaLOG] 0 unit SUB-Q ACHS units 11/15/17 Unknown Rx Active Medications: Generic Name Dose Route Start Last Admin Trade Name Freq PRN Reason Stop Dose Admin Acetaminophen 650 mg 08/09/18 19:58 Tylenol PO Q4H PRN Pain MILD(1-3)/Fever >100.5/ALCARAZ Allopurinol 100 mg 08/09/18 18:23 Zyloprim PO QDAY PRN Inflammation Atorvastatin Calcium 80 mg 08/09/18 22:00 08/10/18 00:04 Lipitor PO 80 mg HS ISAC Administration Clopidogrel Bisulfate 75 mg 08/09/18 22:00 08/10/18 00:03 Plavix PO 75 mg QDAY ISAC Administration Famotidine 10 mg 08/09/18 22:00 08/10/18 00:03 Pepcid PO 10 mg BID ISAC Administration Heparin Sodium (Porcine) 5,000 unit 08/10/18 10:00 Heparin SUB-Q Q12HR ISAC Sodium Chloride 500 mls @ 50 mls/hr 08/10/18 08:00 08/10/18 09:10 Nacl 0.9% 500 Ml IV 100 mls DIRECT ISAC Administration Insulin Human Lispro 0 unit 08/09/18 22:00 08/10/18 08:43 Humalog SUB-Q Not Given ACHS ISAC Protocol Insulin Human Regular 10 units 08/10/18 08:00 08/10/18 08:44 Humulin R SUB-Q Not Given TIDWM [facility] Protocol Metoprolol Tartrate 50 mg 08/09/18 22:00 08/10/18 00:04 Lopressor PO 50 mg BID ISAC Administration Morphine Sulfate 2 mg 08/09/18 19:58 Morphine IV Q4H PRN Pain, Moderate (4-6) Ondansetron HCl 4 mg 08/09/18 19:58 Zofran IV Q8H PRN Nausea And Vomiting Sodium Chloride 10 ml 08/09/18 22:00 08/10/18 00:05 Sodium Chloride Flush Syringe 10 Ml IV 10 ml BID ISAC Administration Sodium Chloride 10 ml 08/09/18 19:58 Sodium Chloride Flush Syringe 10 Ml IV PRN PRN LINE FLUSH Valsartan 160 mg 08/09/18 22:00 08/10/18 00:03 Diovan PO 160 mg QDAY ISAC Administration
[2018-08-10] MEDS ORDERED: NACL 0.9% 100 ML IV PRN (10:10)
[2018-08-10] MEDS ORDERED: PROCRIT SUB-Q PRN (10:10)
[2018-08-10] MEDS: HEPARIN SUB-Q SCH ×2 (10:21→22:09)
--- NOTE | 2018-08-10 10:26 | Progress Note ---
Assessment and Plan Assessment and plan: ESRD To initiate dialysis today vasc catheter placed nephrology following Diabetes mellitus type 2 Fingerstick qac and hs Hypertension monitor BP Coronary artery disease no chest pain Full code status History Interval history: Patient sent in to initiate dialysis Hospitalist Physical - Physical exam Narrative exam: Gen: Not in acute distress, sitting up in bed,obese HEENT: Normocephalic, atraumatic Neck: supple, no JVD Heart: S1 and S2 reg, no murmurs, rubs or gallop Lungs: Clear, no crackles, no wheeze, permcath right chest wall Abd: soft, non tender, non distended, normal BS Ext: No edema, no clubbing, no cyanosis, Neuro: Awake,alert, oriented x 3, moves all ext, non focal Psych:Normal mood - Constitutional Vitals: Temp Pulse Resp BP Pulse Ox 97.8 F 79 18 130/69 94 08/10/18 07:10 08/10/18 07:10 08/10/18 07:10 08/10/18 07:10 08/10/18 07:10 General appearance: Present: no acute distress, obese Results - Labs CBC & Chem 7: 08/10/18 05:00 08/10/18 05:00 Labs: Laboratory Last Values WBC 6.5 K/mm3 (4.5-11.0) 08/10/18 05:00 RBC 3.10 M/mm3 (3.65-5.03) L 08/10/18 05:00 Hgb 9.4 gm/dl (11.8-15.2) L 08/10/18 05:00 Hct 28.5 % (35.5-45.6) L 08/10/18 05:00 MCV 92 fl (84-94) 08/10/18 05:00 MCH 30 pg (28-32) 08/10/18 05:00 MCHC 33 % (32-34) 08/10/18 05:00 RDW 16.4 % (13.2-15.2) H 08/10/18 05:00 Plt Count 222 K/mm3 (140-440) 08/10/18 05:00 Lymph % (Auto) 29.5 % (13.4-35.0) 08/10/18 05:00 [place] % (Auto) 9.4 % (0.0-7.3) H 08/10/18 05:00 Eos % (Auto) 4.0 % (0.0-4.3) 08/10/18 05:00 Baso % (Auto) 0.7 % (0.0-1.8) 08/10/18 05:00 Lymph # 1.9 K/mm3 (1.2-5.4) 08/10/18 05:00 [place] # 0.6 K/mm3 (0.0-0.8) 08/10/18 05:00 Eos # 0.3 K/mm3 (0.0-0.4) 08/10/18 05:00 Baso # 0.0 K/mm3 (0.0-0.1) 08/10/18 05:00 Seg Neutrophils % 56.4 % (40.0-70.0) 08/10/18 05:00 Seg Neutrophils # 3.6 K/mm3 (1.8-7.7) 08/10/18 05:00 Sodium 140 mmol/L (137-145) 08/10/18 05:00 Potassium 3.7 mmol/L (3.6-5.0) 08/10/18 05:00 Chloride 104.8 mmol/L (98-107) 08/10/18 05:00 Carbon Dioxide 20 mmol/L (22-30) L 08/10/18 05:00 19 mmol/L 08/10/18 05:00 BUN 71 mg/dL (9-20) H 08/10/18 05:00 4.0 mg/dL (0.8-1.5) H 08/10/18 05:00 Estimated GFR 18 ml/min 08/10/18 05:00 18 % 08/10/18 05:00 Glucose 234 mg/dL (75-100) H 08/10/18 05:00 POC Glucose 236 (70-105) H 08/10/18 07:15 10.1 % (4-6) H 08/09/18 20:13 Calcium 7.5 mg/dL (8.4-10.2) L 08/10/18 05:00 Phosphorus 5.60 mg/dL (2.5-4.5) H 08/09/18 16:19 0.20 mg/dL (0.1-1.2) 08/10/18 05:00 AST 14 units/L (5-40) 08/10/18 05:00 ALT 11 units/L (7-56) 08/10/18 05:00 78 units/L (35-129) 08/10/18 05:00 6.7 g/dL (6.3-8.2) 08/10/18 05:00 2.7 g/dL (3.9-5) L 08/10/18 05:00 0.7 % 08/10/18 05:00 TSH 1.760 mlU/mL (0.270-4.200) 08/09/18 16:19 Hepatitis A IgM Ab Non-reactive (NonReactive) 08/09/18 16:19 Hep Bs Antigen Non-reactive (Negative) 08/09/18 16:19 Hep B Core IgM Ab Non-reactive (NonReactive) 08/09/18 16:19 Non-reactive (NonReactive) 08/09/18 16:19 Active Medications - Current Medications Current Medications: Generic Name Dose Route Start Last Admin Trade Name Freq PRN Reason Stop Dose Admin Acetaminophen 650 mg 08/09/18 19:58 Tylenol PO Q4H PRN Pain MILD(1-3)/Fever >100.5/ALCARAZ Allopurinol 100 mg 08/09/18 18:23 Zyloprim PO QDAY PRN Inflammation Atorvastatin Calcium 80 mg 08/09/18 22:00 08/10/18 00:04 Lipitor PO 80 mg HS ISAC Administration Clopidogrel Bisulfate 75 mg 08/09/18 22:00 08/10/18 00:03 Plavix PO 75 mg QDAY ISAC Administration Epoetin Elias 10,000 unit 08/10/18 10:10 Procrit SUB-Q JAYDEN PRN hemodialysis Famotidine 10 mg 08/09/18 22:00 08/10/18 00:03 Pepcid PO 10 mg BID ISAC Administration Heparin Sodium (Porcine) 5,000 unit 08/10/18 10:00 Heparin SUB-Q Q12HR ISAC Sodium Chloride 500 mls @ 50 mls/hr 08/10/18 08:00 08/10/18 09:10 Nacl 0.9% 500 Ml IV 100 mls DIRECT ISAC Administration Sodium Chloride 100 mls @ 999 mls/hr 08/10/18 10:10 Nacl 0.9% IV JAYDEN PRN Hypotension Insulin Human Lispro 0 unit 08/09/18 22:00 08/10/18 00:04 Humalog SUB-Q 4 unit ACHS ISAC Administration Protocol Insulin Human Regular 10 units 08/10/18 08:00 Humulin R SUB-Q TIDWM [facility] Protocol Metoprolol Tartrate 50 mg 08/09/18 22:00 08/10/18 00:04 Lopressor PO 50 mg BID ISAC Administration Morphine Sulfate 2 mg 08/09/18 19:58 Morphine IV Q4H PRN Pain, Moderate (4-6) Ondansetron HCl 4 mg 08/09/18 19:58 Zofran IV Q8H PRN Nausea And Vomiting Sodium Chloride 10 ml 08/09/18 22:00 08/10/18 00:05 Sodium Chloride Flush Syringe 10 Ml IV 10 ml BID ISAC Administration Sodium Chloride 10 ml 08/09/18 19:58 Sodium Chloride Flush Syringe 10 Ml IV PRN PRN LINE FLUSH Valsartan 160 mg 08/09/18 22:00 08/10/18 00:03 Diovan PO 160 mg QDAY ISAC Administration
[2018-08-10] MEDS: TYLENOL PO PRN (15:29)
--- NOTE | 2018-08-10 20:20 | Vascular Lab Report ---
PROCEDURE: BILATERAL UPPER EXTREMITY VEIN MAPPING TECHNIQUE: Duplex Doppler ultrasound of the BILATERAL upper extremity veins and incompetent perforat ors was attempted. James scale imaging with and without compression, spectral waveform analysis with a nd without augmentation, and color flow Doppler were employed. CPT 11495 HISTORY: . Preparation for vein harvesting. COMPARISONS: None . FINDINGS: RIGHT UPPER EXTREMITY: Brachial artery: 5.8 mm. PSV 81 cm/s. Triphasic waveform And artery: 2.2 mm. PSV 86 cm/s. Triphasic waveform Bilateral artery: 2.2 mm. PSV 43 cm/s. Triphasic waveform BASILIC Vein Upper Arm: Proximal diameter: Not visualized Mid diameter: 2.9 mm Distal diameter: 2.7 mm BASILIC Vein Forearm: Proximal diameter: Nonvisualized Mid diameter: Is not visualized Distal diameter: Not visualized CEPHALIC Vein Upper Arm: Proximal diameter: 3.5 mm Mid diameter: 3.7 mm Distal diameter: 4.3 mm Antecubital fossa: 7.7 mm CEPHALIC Vein Forearm: Proximal diameter: 2.4 mm Mid diameter: 1.3 mm Distal diameter: 1.3 mm LEFT UPPER EXTREMITY: Brachial artery: 5.8 mm. PSV 69 cm/s. Triphasic waveform Radial Artery: 2.6 mm. PSV 77 cm/s. Triphasic waveform Ulnar artery: 2.0 mm. 46 cm/s. Triphasic waveform BASILIC Vein Upper Arm: Proximal diameter: 3.3 mm Mid diameter: 3.1 mm Distal diameter: 2.7 mm. Branche noted measuring 1.9 mm Antecubital fossa: 2.1 mm BASILIC Vein Forearm: Proximal diameter: Not visualized Mid diameter: Not visualized Distal diameter: Not visualized CEPHALIC Vein Upper Arm: Proximal diameter: 3.6 mm Mid diameter: 3.4 mm Distal diameter: 4.4 mm Antecubital fossa: 4.6 mm CEPHALIC Vein Forearm: Proximal diameter: 1.9 mm Mid diameter: 2.0 mm Distal diameter: 1.5 mm IMPRESSION: Venous mapping measurements as detailed above. No superficial venous thrombosis . This document is electronically signed by Sandeep Mitchell MD., Aug 10 2018 08:17:54 PM ET
[2018-08-10] MEDS: MORPHINE IV PRN (22:04)
[2018-08-11] MEDS: MORPHINE IV PRN ×2 (06:18→20:37)
--- NOTE | 2018-08-11 08:01 | Progress Note ---
Assessment and Plan 1. ESRD: CKD has progressed to ESRD. Patient was started on hemodialysis yesterday. Next HD today. Await outpatient HD chair at [facility]. 2. FEN: Metabolic acidosis, HD today. Volume overload, UF with HD. Monitor. 3. Anemia: Epogen with HD. 4. DM type 2, uncontrolled. 5. Hypertension. 6. H/o CAD and stent. Subjective Date of service: 08/11/18 Interval history: Patient was seen and examined at the bedside. Feeling better today. Objective - Vital Signs Vital signs: Vital Signs - 12hr 08/10/18 08/10/18 08/10/18 20:15 20:30 20:45 Temperature Pulse Rate 81 84 80 Pulse Rate [ Right Brachial] Respiratory Rate Blood Pressure 151/88 156/93 141/92 O2 Sat by Pulse Oximetry 08/10/18 08/10/18 08/10/18 21:00 21:15 21:30 Temperature 97.9 F Pulse Rate 82 85 83 Pulse Rate [ Right Brachial] Respiratory 16 Rate Blood Pressure 166/103 154/103 186/109 O2 Sat by Pulse Oximetry 08/10/18 08/10/18 08/10/18 22:00 22:03 22:08 Temperature 97.8 F Pulse Rate 88 88 Pulse Rate [ 88 Right Brachial] Respiratory 20 20 Rate Blood Pressure 151/80 151/80 O2 Sat by Pulse 96 96 Oximetry 08/11/18 03:16 Temperature 98.5 F Pulse Rate 85 Pulse Rate [ Right Brachial] Respiratory 20 Rate Blood Pressure 154/85 O2 Sat by Pulse 95 Oximetry - General Appearance General appearance: well-developed, well-nourished, appears stated age, obese, other (not in distress, R IJ tunnel catheter) EENT: ATNC, PERRL, mucous membranes moist, hearing intact, vision intact Neck: supple Respiratory: Present: Clear to Ascultation Cardiology: regular, S1S2, no murmurs Gastrointestinal: normoactive bowel sounds, no tenderness, no distended Integumentary: no rash, warm and dry Neurologic: no focal deficit, no asterixis, alert and oriented x3 Musculoskeletal: other (no edema) Psychiatric: cooperative - Lab 08/10/18 05:00 08/11/18 07:30 Most recent lab results Calcium 7.5 mg/dL (8.4-10.2) L 08/10/18 05:00 Phosphorus 5.60 mg/dL (2.5-4.5) H 08/09/18 16:19 Medications & Allergies - Medications Allergies/Adverse Reactions: Allergies No Known Allergies Allergy (Verified 04/03/18 12:21) Home Medications: Home Medications Medication Instructions Recorded Confirmed Last Taken Type Allopurinol [Zyloprim] 100 mg PO QDAY PRN #30 tablet 04/17/17 08/11/18 Unknown Rx AtorvaSTATin [Lipitor] 80 mg PO HS #30 tablet 04/17/17 08/11/18 Unknown Rx Aspirin [Adult Aspirin] 81 mg PO DAILY 08/11/18 08/11/18 Unknown History Doxazosin 4 mg PO DAILY 08/11/18 08/11/18 Unknown History Furosemide [Lasix TAB] 80 mg PO BID 08/11/18 08/11/18 Unknown History ISOSORBIDE MONOnitrate [Imdur ER] 30 mg PO DAILY 08/11/18 08/11/18 Unknown History Insulin Detemir [Levemir VIAL] 15 units SUB-Q QHS 08/11/18 08/11/18 Unknown History Insulin Regular, Human Inj 12 units SUB-Q TID 08/11/18 08/11/18 Unknown History Ipratropium/Albuter (Nf) 2 puff IH QID 08/11/18 08/11/18 Unknown History [Combivent (Nf)] Metoprolol 100 mg PO BID 08/11/18 08/11/18 Unknown History Norvasc 10 mg PO DAILY 08/11/18 08/11/18 Unknown History Ticagrelor 90 mg PO BID 08/11/18 08/11/18 Unknown History glipiZIDE [Glucotrol] 10 mg PO BID 08/11/18 08/11/18 Unknown History hydrALAZINE [Apresoline TAB] 50 mg PO TID 08/11/18 08/11/18 Unknown History metOLazone [Zaroxolyn] 2.5 mg PO 2XW 08/11/18 08/11/18 Unknown History Active Medications: Generic Name Dose Route Start Last Admin Trade Name Freq PRN Reason Stop Dose Admin Acetaminophen 650 mg 08/09/18 19:58 08/10/18 15:29 Tylenol PO 650 mg Q4H PRN Administration Pain MILD(1-3)/Fever >100.5/ALCARAZ Allopurinol 100 mg 08/09/18 18:23 Zyloprim PO QDAY PRN Inflammation Atorvastatin Calcium 80 mg 08/09/18 22:00 08/10/18 22:09 Lipitor PO 80 mg HS ISAC Administration Clopidogrel Bisulfate 75 mg 08/09/18 22:00 08/10/18 10:21 Plavix PO 75 mg QDAY ISAC Administration Epoetin Elias 10,000 unit 08/10/18 10:10 Procrit SUB-Q JAYDEN PRN hemodialysis Famotidine 10 mg 08/09/18 22:00 08/10/18 22:08 Pepcid PO 10 mg BID ISAC Administration Heparin Sodium (Porcine) 5,000 unit 08/10/18 10:00 08/10/18 22:09 Heparin SUB-Q 5,000 unit Q12HR ISAC Administration Sodium Chloride 500 mls @ 50 mls/hr 08/10/18 08:00 08/10/18 09:10 Nacl 0.9% 500 Ml IV 100 mls DIRECT ISAC Administration Sodium Chloride 100 mls @ 999 mls/hr 08/10/18 10:10 Nacl 0.9% IV JAYDEN PRN Hypotension Insulin Human Lispro 0 unit 08/09/18 22:00 08/10/18 22:22 Humalog SUB-Q 2 unit ACHS ISAC Administration Protocol Insulin Human Regular 10 units 08/10/18 08:00 08/10/18 17:33 Humulin R SUB-Q 10 units TIDWM ISAC Administration Protocol Metoprolol Tartrate 50 mg 08/09/18 22:00 08/10/18 22:08 Lopressor PO 50 mg BID ISAC Administration Morphine Sulfate 2 mg 08/09/18 19:58 08/11/18 06:18 Morphine IV 2 mg Q4H PRN Administration Pain, Moderate (4-6) Ondansetron HCl 4 mg 08/09/18 19:58 Zofran IV Q8H PRN Nausea And Vomiting Sodium Chloride 10 ml 08/09/18 22:00 08/10/18 22:10 Sodium Chloride Flush Syringe 10 Ml IV 10 ml BID ISAC Administration Sodium Chloride 10 ml 08/09/18 19:58 Sodium Chloride Flush Syringe 10 Ml IV PRN PRN LINE FLUSH Valsartan 160 mg 08/09/18 22:00 08/10/18 13:14 Diovan PO Not Given QDAY ISAC
[2018-08-11 08:14] LABS: Calcium 7.8 mg/dL (8.4-10.2)
[2018-08-11] MEDS: HumaLOG SUB-Q SCH ×4 (08:20→22:58)
[2018-08-11] MEDS: HumuLIN R SUB-Q SCH ×3 (08:20→17:05)
[2018-08-11] MEDS ORDERED: NACL 0.9% 100 ML IV PRN (08:20)
[2018-08-11] MEDS: HEPARIN SUB-Q SCH ×2 (09:06→21:36)
[2018-08-11] MEDS: SODIUM CHLORIDE FLUSH SYRINGE 10 ML IV SCH ×2 (09:06→23:01)
[2018-08-11] MEDS: PLAVIX PO SCH (09:06)
[2018-08-11] MEDS: PEPCID PO SCH ×2 (09:06→21:38)
--- NOTE | 2018-08-11 09:29 | XRay Report ---
RIGHT WRIST, 2 VIEWS History: Right wrist swelling and pain. Findings: Mild osteopenia is suspected. Moderate osteoarthritic changes are identified throughout the right wrist. There is no evidence for fracture, dislocation or bone lesion. The scapholunate interval appears widened likely represent scapholunate ligament injury. The soft tissues are unremarkable. Impression: Mild osteopenia. Osteoarthritis. Scapholunate ligament injury is suspected.
[2018-08-11] MEDS ORDERED: NACL 0.9 (PRIMING MACHINE ONLY DIALYSIS) MC ONE (11:38)
[2018-08-11] MEDS: DIOVAN PO SCH (14:04)
[2018-08-11] MEDS: LOPRESSOR PO SCH ×2 (14:04→21:39)
--- NOTE | 2018-08-11 15:05 | Progress Note ---
Assessment and Plan Assessment and plan: ESRD Initiated dialysis yesterday 08/10/18 vasc catheter placed nephrology following Awaiting outpatient dialysis arrangement Diabetes mellitus type 2 Fingerstick qac and hs Hypertension monitor BP Coronary artery disease no chest pain Full code status History Interval history: Patient sent in to initiate dialysis, Started dialysis yesterday Hospitalist Physical - Physical exam Narrative exam: Gen: Not in acute distress, sitting up in bed,obese HEENT: Normocephalic, atraumatic Neck: supple, no JVD Heart: S1 and S2 reg, no murmurs, rubs or gallop Lungs: Clear, no crackles, no wheeze, permcath right chest wall Abd: soft, non tender, non distended, normal BS Ext: No edema, no clubbing, no cyanosis, Neuro: Awake,alert, oriented x 3, moves all ext, non focal Psych:Normal mood - Constitutional Vitals: Temp Pulse Resp BP Pulse Ox 98.8 F 77 20 151/83 96 08/11/18 13:19 08/11/18 14:04 08/11/18 13:19 08/11/18 14:04 08/11/18 13:19 General appearance: Present: no acute distress, obese Results - Labs CBC & Chem 7: 08/10/18 05:00 08/12/18 05:02 Labs: Laboratory Last Values WBC 6.5 K/mm3 (4.5-11.0) 08/10/18 05:00 RBC 3.10 M/mm3 (3.65-5.03) L 08/10/18 05:00 Hgb 9.4 gm/dl (11.8-15.2) L 08/10/18 05:00 Hct 28.5 % (35.5-45.6) L 08/10/18 05:00 MCV 92 fl (84-94) 08/10/18 05:00 MCH 30 pg (28-32) 08/10/18 05:00 MCHC 33 % (32-34) 08/10/18 05:00 RDW 16.4 % (13.2-15.2) H 08/10/18 05:00 Plt Count 222 K/mm3 (140-440) 08/10/18 05:00 Lymph % (Auto) 29.5 % (13.4-35.0) 08/10/18 05:00 [place] % (Auto) 9.4 % (0.0-7.3) H 08/10/18 05:00 Eos % (Auto) 4.0 % (0.0-4.3) 08/10/18 05:00 Baso % (Auto) 0.7 % (0.0-1.8) 08/10/18 05:00 Lymph # 1.9 K/mm3 (1.2-5.4) 08/10/18 05:00 [place] # 0.6 K/mm3 (0.0-0.8) 08/10/18 05:00 Eos # 0.3 K/mm3 (0.0-0.4) 08/10/18 05:00 Baso # 0.0 K/mm3 (0.0-0.1) 08/10/18 05:00 Seg Neutrophils % 56.4 % (40.0-70.0) 08/10/18 05:00 Seg Neutrophils # 3.6 K/mm3 (1.8-7.7) 08/10/18 05:00 Sodium 140 mmol/L (137-145) 08/11/18 07:30 Potassium 4.4 mmol/L (3.6-5.0) 08/11/18 07:30 Chloride 106.3 mmol/L (98-107) 08/11/18 07:30 Carbon Dioxide 24 mmol/L (22-30) 08/11/18 07:30 14 mmol/L 08/11/18 07:30 BUN 47 mg/dL (9-20) H 08/11/18 07:30 3.3 mg/dL (0.8-1.5) H 08/11/18 07:30 Estimated GFR 23 ml/min 08/11/18 07:30 14 % 08/11/18 07:30 Glucose 221 mg/dL (75-100) H 08/11/18 07:30 POC Glucose 196 (70-105) H 08/11/18 13:24 10.1 % (4-6) H 08/09/18 20:13 Calcium 7.8 mg/dL (8.4-10.2) L 08/11/18 07:30 Phosphorus 5.60 mg/dL (2.5-4.5) H 05/22/19 16:19 0.20 mg/dL (0.1-1.2) 08/10/18 05:00 AST 14 units/L (5-40) 08/10/18 05:00 ALT 11 units/L (7-56) 08/10/18 05:00 78 units/L (35-129) 08/10/18 05:00 6.7 g/dL (6.3-8.2) 08/10/18 05:00 2.7 g/dL (3.9-5) L 08/10/18 05:00 0.7 % 08/10/18 05:00 TSH 1.760 mlU/mL (0.270-4.200) 08/09/18 16:19 Hepatitis A IgM Ab Non-reactive (NonReactive) 08/09/18 16:19 Hep Bs Antigen Non-reactive (Negative) 08/09/18 16:19 Hep B Core IgM Ab Non-reactive (NonReactive) 08/09/18 16:19 Non-reactive (NonReactive) 08/09/18 16:19 Active Medications - Current Medications Current Medications: Generic Name Dose Route Start Last Admin Trade Name Freq PRN Reason Stop Dose Admin Acetaminophen 650 mg 08/09/18 19:58 08/10/18 15:29 Tylenol PO 650 mg Q4H PRN Administration Pain MILD(1-3)/Fever >100.5/ALCARAZ Allopurinol 100 mg 08/09/18 18:23 Zyloprim PO QDAY PRN Inflammation Atorvastatin Calcium 80 mg 08/09/18 22:00 08/10/18 22:09 Lipitor PO 80 mg HS ISAC Administration Clopidogrel Bisulfate 75 mg 08/09/18 22:00 08/11/18 09:06 Plavix PO 75 mg QDAY ISAC Administration Epoetin Elias 10,000 unit 08/10/18 10:10 Procrit SUB-Q JAYDEN PRN hemodialysis Famotidine 10 mg 08/09/18 22:00 08/11/18 09:06 Pepcid PO 10 mg BID ISAC Administration Heparin Sodium (Porcine) 5,000 unit 08/10/18 10:00 08/11/18 09:06 Heparin SUB-Q 5,000 unit Q12HR ISAC Administration Sodium Chloride 500 mls @ 50 mls/hr 08/10/18 08:00 05/23/19 09:10 Nacl 0.9% 500 Ml IV 100 mls DIRECT ISAC Administration Sodium Chloride 100 mls @ 999 mls/hr 08/11/18 08:20 Nacl 0.9% IV JAYDEN PRN Hypotension Insulin Human Lispro 0 unit 08/09/18 22:00 08/11/18 14:05 Humalog SUB-Q Not Given ACHS ISAC Protocol Insulin Human Regular 10 units 08/10/18 08:00 08/11/18 14:17 Humulin R SUB-Q 10 units TIDWM ISAC Administration Protocol Metoprolol Tartrate 50 mg 08/09/18 22:00 08/11/18 14:04 Lopressor PO 50 mg BID ISAC Administration Morphine Sulfate 2 mg 08/09/18 19:58 08/11/18 06:18 Morphine IV 2 mg Q4H PRN Administration Pain, Moderate (4-6) Ondansetron HCl 4 mg 08/09/18 19:58 Zofran IV Q8H PRN Nausea And Vomiting Sodium Chloride 10 ml 08/09/18 22:00 08/11/18 09:06 Sodium Chloride Flush Syringe 10 Ml IV 10 ml BID ISAC Administration Sodium Chloride 10 ml 08/09/18 19:58 Sodium Chloride Flush Syringe 10 Ml IV PRN PRN LINE FLUSH Valsartan 160 mg 08/09/18 22:00 08/11/18 14:04 Diovan PO 160 mg QDAY ISAC Administration
[2018-08-11] MEDS: TYLENOL PO PRN (17:05)
[2018-08-12] MEDS: APRESOLINE IV PRN ×2 (03:24→13:31)
[2018-08-12] MEDS: MORPHINE IV PRN ×2 (05:28→13:22)
[2018-08-12 06:00] LABS: Calcium 8.5 mg/dL (8.4-10.2)
[2018-08-12] MEDS: HumaLOG SUB-Q SCH ×3 (08:29→16:57)
[2018-08-12] MEDS: HumuLIN R SUB-Q SCH ×3 (08:29→16:57)
[2018-08-12] MEDS: DIOVAN PO SCH (09:06)
[2018-08-12] MEDS: LOPRESSOR PO SCH (09:06)
[2018-08-12] MEDS: PEPCID PO SCH (09:06)
[2018-08-12] MEDS: PLAVIX PO SCH (09:06)
[2018-08-12] MEDS: SODIUM CHLORIDE FLUSH SYRINGE 10 ML IV SCH (09:07)
[2018-08-12] MEDS: HEPARIN SUB-Q SCH (09:07)
--- NOTE | 2018-08-12 13:04 | Progress Note ---
Assessment and Plan Assessment and plan: ESRD Initiated dialysis yesterday 08/10/18 vasc catheter placed nephrology following Awaiting outpatient dialysis arrangement Diabetes mellitus type 2 Fingerstick qac and hs Hypertension monitor BP Coronary artery disease no chest pain Full code status History Interval history: Patient sent in to initiate dialysis, Started dialysis No chest pain Hospitalist Physical - Physical exam Narrative exam: Gen: Not in acute distress, sitting up in bed,obese HEENT: Normocephalic, atraumatic Neck: supple, no JVD Heart: S1 and S2 reg, no murmurs, rubs or gallop Lungs: Clear, no crackles, no wheeze, permcath right chest wall Abd: soft, non tender, non distended, normal BS Ext: No edema, no clubbing, no cyanosis, Neuro: Awake,alert, oriented x 3, moves all ext, non focal Psych:Normal mood - Constitutional Vitals: Temp Pulse Resp BP Pulse Ox 98.0 F 89 20 138/78 87 08/12/18 07:32 08/12/18 09:06 08/12/18 07:32 08/12/18 09:06 08/12/18 07:32 General appearance: Present: no acute distress, obese Results - Labs CBC & Chem 7: 08/10/18 05:00 08/12/18 05:02 Labs: Laboratory Last Values WBC 6.5 K/mm3 (4.5-11.0) 08/10/18 05:00 RBC 3.10 M/mm3 (3.65-5.03) L 08/10/18 05:00 Hgb 9.4 gm/dl (11.8-15.2) L 08/10/18 05:00 Hct 28.5 % (35.5-45.6) L 08/10/18 05:00 MCV 92 fl (84-94) 08/10/18 05:00 MCH 30 pg (28-32) 08/10/18 05:00 MCHC 33 % (32-34) 08/10/18 05:00 RDW 16.4 % (13.2-15.2) H 08/10/18 05:00 Plt Count 222 K/mm3 (140-440) 08/10/18 05:00 Lymph % (Auto) 29.5 % (13.4-35.0) 08/10/18 05:00 [place] % (Auto) 9.4 % (0.0-7.3) H 08/10/18 05:00 Eos % (Auto) 4.0 % (0.0-4.3) 08/10/18 05:00 Baso % (Auto) 0.7 % (0.0-1.8) 08/10/18 05:00 Lymph # 1.9 K/mm3 (1.2-5.4) 08/10/18 05:00 [place] # 0.6 K/mm3 (0.0-0.8) 08/10/18 05:00 Eos # 0.3 K/mm3 (0.0-0.4) 08/10/18 05:00 Baso # 0.0 K/mm3 (0.0-0.1) 08/10/18 05:00 Seg Neutrophils % 56.4 % (40.0-70.0) 08/10/18 05:00 Seg Neutrophils # 3.6 K/mm3 (1.8-7.7) 08/10/18 05:00 Sodium 140 mmol/L (137-145) 08/12/18 05:02 Potassium 3.8 mmol/L (3.6-5.0) 08/12/18 05:02 Chloride 102.6 mmol/L (98-107) 08/12/18 05:02 Carbon Dioxide 26 mmol/L (22-30) 08/12/18 05:02 15 mmol/L 08/12/18 05:02 BUN 33 mg/dL (9-20) H 08/12/18 05:02 2.9 mg/dL (0.8-1.5) H 08/12/18 05:02 Estimated GFR 26 ml/min 08/12/18 05:02 11 % 08/12/18 05:02 Glucose 175 mg/dL (75-100) H 08/12/18 05:02 POC Glucose 236 (70-105) H 08/12/18 11:24 10.1 % (4-6) H 08/09/18 20:13 Calcium 8.5 mg/dL (8.4-10.2) 08/12/18 05:02 Phosphorus 5.60 mg/dL (2.5-4.5) H 08/09/18 16:19 0.20 mg/dL (0.1-1.2) 08/10/18 05:00 AST 14 units/L (5-40) 08/10/18 05:00 ALT 11 units/L (7-56) 08/10/18 05:00 78 units/L (35-129) 08/10/18 05:00 6.7 g/dL (6.3-8.2) 08/10/18 05:00 2.7 g/dL (3.9-5) L 08/10/18 05:00 0.7 % 08/10/18 05:00 TSH 1.760 mlU/mL (0.270-4.200) 08/09/18 16:19 Hepatitis A IgM Ab Non-reactive (NonReactive) 08/09/18 16:19 Hep Bs Antigen Non-reactive (Negative) 08/09/18 16:19 Hep B Core IgM Ab Non-reactive (NonReactive) 08/09/18 16:19 Non-reactive (NonReactive) 08/09/18 16:19 Active Medications - Current Medications Current Medications: Generic Name Dose Route Start Last Admin Trade Name Freq PRN Reason Stop Dose Admin Acetaminophen 650 mg 08/09/18 19:58 08/11/18 17:05 Tylenol PO 650 mg Q4H PRN Administration Pain MILD(1-3)/Fever >100.5/ALCARAZ Allopurinol 100 mg 08/09/18 18:23 08/11/18 19:31 Zyloprim PO 100 mg QDAY PRN Administration Inflammation Atorvastatin Calcium 80 mg 08/09/18 22:00 08/11/18 21:37 Lipitor PO 80 mg HS ISAC Administration Clopidogrel Bisulfate 75 mg 08/09/18 22:00 08/12/18 09:06 Plavix PO 75 mg QDAY ISAC Administration Epoetin Elias 10,000 unit 08/10/18 10:10 Procrit SUB-Q JAYDEN PRN hemodialysis Famotidine 10 mg 08/09/18 22:00 08/12/18 09:06 Pepcid PO 10 mg BID ISAC Administration Heparin Sodium (Porcine) 5,000 unit 08/10/18 10:00 08/12/18 09:07 Heparin SUB-Q 5,000 unit Q12HR ISAC Administration Hydralazine HCl 10 mg 08/12/18 03:05 08/12/18 03:24 Apresoline IV 10 mg Q4HR PRN Administration Blood Pressure Sodium Chloride 500 mls @ 50 mls/hr 08/10/18 08:00 08/10/18 09:10 Nacl 0.9% 500 Ml IV 100 mls DIRECT ISAC Administration Sodium Chloride 100 mls @ 999 mls/hr 08/11/18 08:20 Nacl 0.9% IV JAYDEN PRN Hypotension Insulin Human Lispro 0 unit 08/09/18 22:00 08/12/18 11:56 Humalog SUB-Q 3 unit ACHS ISAC Administration Protocol Insulin Human Regular 10 units 08/10/18 08:00 08/12/18 11:55 Humulin R SUB-Q 10 units TIDWM ISAC Administration Protocol Metoprolol Tartrate 50 mg 08/09/18 22:00 08/12/18 09:06 Lopressor PO 50 mg BID ISAC Administration Morphine Sulfate 2 mg 08/09/18 19:58 08/12/18 05:28 Morphine IV 2 mg Q4H PRN Administration Pain, Moderate (4-6) Ondansetron HCl 4 mg 08/09/18 19:58 Zofran IV Q8H PRN Nausea And Vomiting Sodium Chloride 10 ml 08/09/18 22:00 08/12/18 09:07 Sodium Chloride Flush Syringe 10 Ml IV 10 ml BID ISAC Administration Sodium Chloride 10 ml 08/09/18 19:58 Sodium Chloride Flush Syringe 10 Ml IV PRN PRN LINE FLUSH Valsartan 160 mg 08/09/18 22:00 08/12/18 09:06 Diovan PO 160 mg QDAY ISAC Administration
--- NOTE | 2018-08-12 13:06 | Progress Note ---
Assessment and Plan 1. ESRD: CKD has progressed to ESRD. Patient was started on hemodialysis on 08/10/2018. Last dialyzed yesterday. Outpatient HD chair arranged at [facility], [address] [place] [address] Start date: 08/14/2018 Time: 11:00 AM 2. FEN: Metabolic acidosis, improved. Volume overload, UF with HD as needed. Monitor. 3. Anemia: Epogen with HD. 4. DM type 2: Blood sugar is better. 5. Hypertension. 6. H/o CAD and stent. Subjective Date of service: 08/12/18 Interval history: Patient was seen and examined at the bedside. Feeling better. Objective - Vital Signs Vital signs: Vital Signs - 12hr 08/12/18 08/12/18 08/12/18 02:00 02:55 03:24 Temperature 98.8 F Pulse Rate 80 82 Respiratory 19 Rate Blood Pressure 186/102 186/102 Blood Pressure 170/104 [Left] O2 Sat by Pulse 97 97 Oximetry 08/12/18 08/12/18 08/12/18 05:19 07:32 09:06 Temperature 98.0 F Pulse Rate 89 89 Respiratory 20 Rate Blood Pressure 161/82 138/78 138/78 Blood Pressure [Left] O2 Sat by Pulse 87 Oximetry - General Appearance General appearance: well-developed, well-nourished, appears stated age, obese, other (not in distress, R IJ tunnel catheter) EENT: ATNC, PERRL, mucous membranes moist, hearing intact, vision intact Neck: supple Respiratory: Present: Clear to Ascultation Cardiology: regular, S1S2, no murmurs Gastrointestinal: normoactive bowel sounds, no tenderness, no distended Integumentary: no rash, warm and dry Neurologic: no focal deficit, no asterixis, alert and oriented x3 Musculoskeletal: other (no edema) Psychiatric: cooperative - Lab 08/10/18 05:00 08/12/18 05:02 Most recent lab results Calcium 8.5 mg/dL (8.4-10.2) 08/12/18 05:02 Phosphorus 5.60 mg/dL (2.5-4.5) H 08/09/18 16:19 Medications & Allergies - Medications Allergies/Adverse Reactions: Allergies No Known Allergies Allergy (Verified 04/03/18 12:21) Home Medications: Home Medications Medication Instructions Recorded Confirmed Last Taken Type Aspirin [Adult Aspirin] 81 mg PO DAILY 08/11/18 08/11/18 Unknown History Doxazosin 4 mg PO DAILY 08/11/18 08/11/18 Unknown History Furosemide [Lasix TAB] 80 mg PO BID 08/11/18 08/11/18 Unknown History ISOSORBIDE MONOnitrate [Imdur ER] 30 mg PO DAILY 08/11/18 08/11/18 Unknown History Insulin Detemir [Levemir VIAL] 15 units SUB-Q QHS 08/11/18 08/11/18 Unknown History Insulin Regular, Human Inj 12 units SUB-Q TID 08/11/18 08/11/18 Unknown History Ipratropium/Albuter (Nf) 2 puff IH QID 08/11/18 08/11/18 Unknown History [Combivent Inhaler] Metoprolol 100 mg PO BID 08/11/18 08/11/18 Unknown History Norvasc 10 mg PO DAILY 08/11/18 08/11/18 Unknown History Ticagrelor 90 mg PO BID 08/11/18 08/11/18 Unknown History glipiZIDE [Glucotrol] 10 mg PO BID 08/11/18 08/11/18 Unknown History hydrALAZINE [Apresoline TAB] 50 mg PO TID 08/11/18 08/11/18 Unknown History metOLazone [Zaroxolyn] 2.5 mg PO 2XW 08/11/18 08/11/18 Unknown History Active Medications: Generic Name Dose Route Start Last Admin Trade Name Freq PRN Reason Stop Dose Admin Acetaminophen 650 mg 08/09/18 19:58 08/11/18 17:05 Tylenol PO 650 mg Q4H PRN Administration Pain MILD(1-3)/Fever >100.5/ALCARAZ Allopurinol 100 mg 08/09/18 18:23 08/11/18 19:31 Zyloprim PO 100 mg QDAY PRN Administration Inflammation Atorvastatin Calcium 80 mg 08/09/18 22:00 08/11/18 21:37 Lipitor PO 80 mg HS ISAC Administration Clopidogrel Bisulfate 75 mg 08/09/18 22:00 08/12/18 09:06 Plavix PO 75 mg QDAY ISAC Administration Epoetin Elias 10,000 unit 08/10/18 10:10 Procrit SUB-Q JAYDEN PRN hemodialysis Famotidine 10 mg 08/09/18 22:00 08/12/18 09:06 Pepcid PO 10 mg BID ISAC Administration Heparin Sodium (Porcine) 5,000 unit 08/10/18 10:00 08/12/18 09:07 Heparin SUB-Q 5,000 unit Q12HR ISAC Administration Hydralazine HCl 10 mg 08/12/18 03:05 08/12/18 03:24 Apresoline IV 10 mg Q4HR PRN Administration Blood Pressure Sodium Chloride 500 mls @ 50 mls/hr 08/10/18 08:00 08/10/18 09:10 Nacl 0.9% 500 Ml IV 100 mls DIRECT ISAC Administration Sodium Chloride 100 mls @ 999 mls/hr 08/11/18 08:20 Nacl 0.9% IV JAYDEN PRN Hypotension Insulin Human Lispro 0 unit 08/09/18 22:00 08/12/18 11:56 Humalog SUB-Q 3 unit ACHS ISAC Administration Protocol Insulin Human Regular 10 units 08/10/18 08:00 08/12/18 11:55 Humulin R SUB-Q 10 units TIDWM ISAC Administration Protocol Metoprolol Tartrate 50 mg 08/09/18 22:00 08/12/18 09:06 Lopressor PO 50 mg BID ISAC Administration Morphine Sulfate 2 mg 08/09/18 19:58 08/12/18 05:28 Morphine IV 2 mg Q4H PRN Administration Pain, Moderate (4-6) Ondansetron HCl 4 mg 08/09/18 19:58 Zofran IV Q8H PRN Nausea And Vomiting Sodium Chloride 10 ml 08/09/18 22:00 08/12/18 09:07 Sodium Chloride Flush Syringe 10 Ml IV 10 ml BID ISAC Administration Sodium Chloride 10 ml 08/09/18 19:58 Sodium Chloride Flush Syringe 10 Ml IV PRN PRN LINE FLUSH Valsartan 160 mg 08/09/18 22:00 08/12/18 09:06 Diovan PO 160 mg QDAY ISAC Administration
[2018-08-12 13:26] VITALS: BP 168/87
--- NOTE | 2018-08-12 14:47 | Discharge Summary ---
Providers - Providers Date of Admission: 08/09/18 15:23 Date of discharge: 08/12/18 Attending physician: RADHA KAN 08/09/18 Consult to Case Management [CONS] Routine Services Needed at Discharge: Home Health Services Notified:: [place] 08/09/18 14:15 Consult to Physician [CONS] Urgent Comment: Consulting Provider: HE LOPEZ Physician Instructions: Reason For Exam: ESRD NEEDING TO START DIALYSIS 08/10/18 12:39 Physical Therapy Evaluation and Treat [CONS] Routine Comment: Reason For Exam: Weakness Primary care physician: [employer] Hospitalization Condition: Fair Hospital course: Patient is 68 yo with Chronic kidney disease now ESRD, CAD, diabetes, hypertension, was sent in by Dr. Lopez as direct admit to initiate hemodialysis. Labs show initial Cr 4.4. Vasc cath was placed and dialysis initiated. case management consulted to arrange out patient dialysis. This was done and he was discharged home on 08/12/18. Total time spent on discharge, 31 mins Disposition: TO HOME OR SELFCARE - Discharge Diagnoses (1) ESRD (end stage renal disease) on dialysis Status: Acute (2) Type 2 diabetes mellitus Status: Acute (3) Coronary artery disease Status: Chronic Qualifiers: Coronary Disease-Associated Artery/Lesion type: [place] artery [place] vs. transplanted heart: [place] heart (4) Essential hypertension Status: Chronic (5) Hyperlipidemia Status: Chronic Qualifiers: Hyperlipidemia type: mixed hyperlipidemia Qualified Code(s): E78.2 - Mixed hyperlipidemia Core Measure Documentation - Palliative Care Palliative Care/ Comfort Measures: Not Applicable - Core Measures Any of the following diagnoses?: none Exam - Constitutional Vitals: Temp Pulse Resp BP Pulse Ox 98.3 F 76 20 168/87 94 08/12/18 13:17 08/12/18 13:31 08/12/18 13:22 08/12/18 13:31 08/12/18 13:17 Plan Activity: advance as tolerated Diet: low fat, low cholesterol, diabetic, renal Additional Instructions: 1.Follow up with PCP. 2.Report to Dialysis Center Tuesday08/14/18 for dialysis at 11am. To report at least 1 hour before. 3.Follow up with Dr. Lopez in 2-4 days at Dialysis Center Follow up with: PRIMARY CAREMD [Primary Care Provider] - 7 Days
== END 2018-08-12 17:15 | disposition home or self-care (01) | DRG 673 ==
LOC: UNDOADMIN 14:11 → 3A 14:11 → 2B-ACE 15:23
PROVIDERS: ADMIT Internal Medicine; ATTEND Internal Medicine
PROC: 0JH63XZ Insertion of Tunneled Vascular Access Device into Chest Subcutaneous Tissue and Fascia, Percutaneous Approach (ICD-10-PCS; principal; 2018-08-10)
PROC: 02H633Z Insertion of Infusion Device into Right Atrium, Percutaneous Approach (ICD-10-PCS; 2018-08-10)
PROC: B244ZZZ Ultrasonography of Right Heart (ICD-10-PCS; 2018-08-10)
PROC: B2141ZZ Fluoroscopy of Right Heart using Low Osmolar Contrast (ICD-10-PCS; 2018-08-10)
PROC: 5A1D70Z Performance of Urinary Filtration, Intermittent, Less than 6 Hours Per Day (ICD-10-PCS; 2018-08-10)
PROC: 5A1D70Z Performance of Urinary Filtration, Intermittent, Less than 6 Hours Per Day (ICD-10-PCS; 2018-08-11)
DX: I12.0 Hypertensive chronic kidney disease with stage 5 chronic kidney disease or end stage renal disease (principal); N18.6 End stage renal disease; E87.2 Acidosis; N25.81 Secondary hyperparathyroidism of renal origin; E11.22 Type 2 diabetes mellitus with diabetic chronic kidney disease; I25.10 Atherosclerotic heart disease of native coronary artery without angina pectoris; M10.9 Gout, unspecified; E11.21 Type 2 diabetes mellitus with diabetic nephropathy; E66.01 Morbid (severe) obesity due to excess calories; Z68.39 Body mass index [BMI] 39.0-39.9, adult; Z83.3 Family history of diabetes mellitus; Z99.2 Dependence on renal dialysis; Z79.4 Long term (current) use of insulin; Z87.891 Personal history of nicotine dependence; Z95.5 Presence of coronary angioplasty implant and graft; I25.2 Old myocardial infarction
CPT/HCPCS: 36415; 36558; 71045; 76937; 77001; 80048; 80053; 80074; 82962; 83036; 84100; 84443; 85025; 93970; G0378; A9270-GY; C1750; J0360; J1644; J1815; J2250; J2270; J3010; J7030; J7040; J7050